=== PATIENT | male | born 1955 | race Caucasian/White ===

== ENCOUNTER 2016-12-15 14:18 | Emergency (ER) | payer MEDICAID, MEDICARE ==
[~2016-12-15] VITALS: Ht 162.6 cm; Wt 111.4 kg
[~2016-12-15 14:18] MED LIST: BUPR150T8 PO; CLON0.1T PO; CYCL10TA9 PO; DIAZ2TAB PO; DIPH50C PO; DOXE100C4 PO; EPIN0.3P2 IJ; FINA5TAB9 PO; FLUT16SP NS; GABA-500 PO; INSU100I13 SUBQ; KETO120S3 TOPICAL; KLO1T PO; LEVO75TA4 PO; MECL-107 PO; OXYC1TAB24 PO; PARO30TA75 PO; PROM25TA14 PO; TEST200V IM; TRAM50TA2 PO; VERA120T5 PO; [UNRECOGNIZED DRUG - CODE] IJ
[2016-12-15 14:28] VITALS: BP 161/96; PULSE 103; RESP 18; O2SAT 95
--- NOTE | 2016-12-15 15:50 | ED.REPORT ---
HPI-Chest Pain 40 and Over Date of Service Dec 15, 2016 ED Provider: Josiah Kennedy MD A 61 year old transgender male with a medical history including hypertension, diabetes, and hormone therapy s/p lab band surgery, cholecystectomy, bilateral mastectomy, and total hysterectomy presents to the ED via EMS with epigastric abdominal pain onset 13:50 today. The pain has improved since onset and is described as "pressure," with radiation to his sides and back. The patient also reports nausea. He denies vomiting, constipation, or diarrhea. Just before onset the patient took Benadryl x2, Tessalon pearls, gabapentin x2, and Verapamil (160mg), as is usual in the afternoon. Per EMS the patient had a BP of 166/106 and a blood sugar of 309 with otherwise normal vital signs. He has had similar pain in the past, in response to morphine. Nursing Notes Stated Complaint: ABDOMINAL PAIN Chief Complaint: Chest Pain Nursing Notes Reviewed: Yes Allergies: Coded Allergies: Contrast Media (Verified Allergy, Unknown, 04/28/16) NSAIDS (Non-Steroidal Anti-Inflamma (Verified Allergy, Unknown, 04/28/16) Penicillins (Verified Allergy, Unknown, 04/28/16) Shellfish (Verified Allergy, Unknown, 04/28/16) Wubqcjy-Kzk-Msr Reductase Inhibitor (Verified Allergy, Unknown, 04/28/16) aspirin (Verified Allergy, Unknown, 04/28/16) clindamycin (Verified Allergy, Unknown, 04/28/16) ergotamine (Verified Allergy, Unknown, 04/28/16) latex (Verified Allergy, Unknown, 04/28/16) sumatriptan (Verified Allergy, Unknown, 04/28/16) tomato (Verified Adverse Reaction, Severe, Anaphylaxis, 04/28/16) Raw tomoto and sun dried tomato. Cooked tomao is fine. Uncoded Allergies: AVOCADOS (Allergy, Unknown, 07/02/15) BEES (Allergy, Unknown, 07/16/14) IV CONTRAST (Allergy, Unknown, 07/16/14) SWEETENERS (Allergy, Unknown, 07/16/14) Includinc low cals, stevia, truvia Eggplant (Adverse Reaction, Severe, Anaphylaxis, 05/28/14) Scheduled Bupropion ER (Wellbutrin SR) 150 Mg Tablet.er 150 MG PO BID Clonazepam (Clonazepam) 1 Mg Tablet 1.5 MG PO HS Clonidine (Clonidine) 0.1 Mg Tablet 0.1 MG PO BIDAC Diphenhydramine Hcl (Benadryl) 50 Mg Capsule 25 MG PO HS Doxepin (Doxepin) 100 Mg Capsule 100-200 MG PO HS Finasteride (Finasteride) 5 Mg Tablet 5 MG PO AM Fluticasone Propionate (Fluticasone Propionate Nasal) 16 Gm [place].susp 2 SPRAY NS DAILY Gabapentin (Gabapentin) 100 Mg Capsule 100 MG PO TID Insulin Glargine (Lantus U100 Solostar Insulin Pen) 100 Unit/1 Ml Insuln.pen 8 UNIT SUBQ MORNING Ketoconazole (Ketoconazole) 120 Ml Shampoo 1 APPL TOPICAL DAILY lather, leave in place for 5 minutes, then rinse off with water immediately. Levothyroxine (Levothyroxine) 75 Mcg Tablet 75 MCG PO DAILY Paroxetine (Paxil) 30 Mg Tablet 60 MG PO HS Testosterone Cypionate (Depo-Testosterone) 200 Mg/1 Ml Depoinj 0.625 ML IM [id number] last dose per pt was Tuesday12/19/2015 Verapamil (Verapamil) 120 Mg Tablet 120 MG PO TID Scheduled PRN Cyclobenzaprine (Cyclobenzaprine) 10 Mg Tablet 10 MG PO BIDAC PRN PRN Spasm Diazepam (Valium) 2 Mg Tablet 2 MG PO TID PRN PRN vertigo Epinephrine (Epipen 2-Jacob) 0.3 Mg/0.3 Ml Auto.injct 0.3 MG IJ PRN PRN PRN For Anaphyllaxis Meclizine HCl (Meclizine HCl) 25 Mg Tablet 25 MG PO TID PRN PRN . Naloxone HCl (Evzio) 0.4 Mg/0.4 Ml Auto.injct 0.4 MG IJ PRN PRN PRN SOMULANT Promethazine (Promethazine) 25 Mg Tablet 25 MG PO Q4-6H PRN PRN For Nausea Tramadol (Tramadol) 50 Mg Tablet 100 MG PO Q6H PRN PRN For Pain oxyCODONE-Acetaminophen 5-325 mg (oxyCODONE-Acetaminophen 5-325 mg) 1 Each Tablet 1-2 TAB PO Q6H PRN PRN For Pain General Time Seen by MD: 15:39 Chief Complaint Other (Epigastric Abdominal Pain) Hx Obtained From: Patient Arrived By: Walk-in Sudden in Onset?: Yes Onset Occurred: 1 - 4 hours ago Symptom Duration: Since onset Location: : Epigastric Quality: Painful Radiation: : Back (And bilateral sides) Severity: Current: Mild Severity: Maximum: Moderate Associated with: Reports: Nausea, Denies: Fever, Vomiting Pertinent Negative: Relieved by nothing Context Related History: Reports: Diabetes mellitus, Hypertension Recent Healthcare: No recent doctor visit Similar Sx Previous: Yes Past Medical History Past Medical History Notes: PCP: Dr. Peoples Neurologist: Dr. 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 Reports: Diabetes mellitus, Hyperlipidemia, Hypertension Reports: Depression Past Surgical History Bilateral breast reduction Lap band surgery 3 debridements Total knee replacement. Distal end of femur Distal end of left clavical surgically removed Hysterectomy Reports: Cholecystectomy Family History Noncontributory Smoking History Never Smoker Social History Alcohol Use: "Social" Drug Use: Denies drug use Other Social History: Local resident Ambulatory Status Walker Review of Systems Constitutional: Denies: Fever GI: Reports: Abdominal pain (Epigastric, with radiation to sides), Nausea, Denies: Constipation, Diarrhea, Vomiting Musculoskeletal: Reports: Back pain Complete sys rev & neg: except as marked. Physical Exam Initial Vital Signs Vital Signs (First) Date Time Temp Pulse Resp B/P Pulse Ox O2 Delivery O2 Flow Rate FiO2 12/15/16 14:28 36.7 103 18 161/96 95 12/15/16 18:37 Room Air Initial VS: Reviewed Head / Eyes: Atraumatic, Normocephalic ENT: Conjunctiva normal, No scleral icterus Skin: Warm, Dry Neurologic: Alert, Oriented, Nonfocal Psychiatric: Mood/affect normal, Behavior normal, Normal thought content General/Constitutional: Awake, Alert Respiratory / Chest: Breath sounds NL, Breath sounds = bilat, No respiratory distress Cardiovascular: Heart rate NL, Regular rhythm, Heart sounds NL, No gallop, No murmurs, No rubs Abdomen: Soft, BS normoactive Tenderness/Guarding/Rebound: Positive: Tender epigastric (Mild) Port for lap band palpable at left of midline Interpretation & Diagnostics Lab Results Interpretation Result Diagram: 12/15/16 1658 12/15/16 1658 Test 12/15/16 16:45 12/15/16 16:58 Hold [place] Top Tube Received (Received) Hold Glass Top Tube Received (Received) White Blood Count 12.1th/mm3 (3.8-10.1) Red Blood Count 6.09mil/mm3 (4.40-5.80) Hemoglobin 17.4g/dL (13.8-17.2) Hematocrit 49.7% (41.0-50.0) Mean Corpuscular Volume 81.6fL (81-100) Mean Corpuscular Hemoglobin 28.6pg (27.0-35.0) Mean Corpuscular Hemoglobin Concent 35.0% (32.0-37.0) Red Cell Distribution Width 13.7% (12.3-15.4) Platelet Count 205bil/L (150-400) Neutrophils (%) (Auto) 77.3% (40-74) Lymphocytes (%) (Auto) 11.0% (14-46) Monocytes (%) (Auto) 6.8% (4-12) Eosinophils (%) (Auto) 3.9% (0-5) Basophils (%) (Auto) 0.3% (0-3) Sodium Level 140mEq/L (134-144) Potassium Level 4.7mEq/L (3.5-5.2) Chloride Level 99mEq/L (97-108) Carbon Dioxide Level 24mmol/L (18-29) Blood Urea Nitrogen 15mg/dL (8-27) Creatinine 0.92mg/dL (0.76-1.27) Estimat Glomerular Filtration Rate 89mL/min (>59) Glucose Level 324mg/dL (60-99) Calcium Level 9.6mg/dL (8.5-10.1) Total Bilirubin 0.6mg/dL (0.0-1.2) Aspartate Amino Transf (AST/SGOT) 36U/L (0-50) Alanine Aminotransferase (ALT/SGPT) 51U/L (0-44) Alkaline Phosphatase 86U/L (25-160) Troponin T < 0.010ug/L (0.0-0.011) Total Protein 7.4g/dL (6.4-8.4) Albumin 4.4g/dL (3.4-5.0) Lipase 341U/L (13-60) ECG Interpretation ECG Interpretation: Sinus rhythm rate 96 Inferior Q waves and poor R wave progression No change from 04/23/16 Time: 15:54 Interpreted by: ED physician X-Ray Chest Interpretation Chest Xray Interpretation: IMPRESSION: No acute process. Dictated by: Ruby Gregory M.D. on 12/15/2016 at 16:40 View: Portable, 1 view Interpretation / Wet Read by: Interpret - Radiologist CT Abd / Pelvis Interpretation IMPRESSION: 1. Normal CT appearance of pancreas. This finding does not rule out early pancreatitis. 2. Colonic diverticulosis. No active diverticulitis. 3. Normal appendix. 4. Hepatic steatosis. Dictated by: Mario Raymundo M.D. on 12/15/2016 at 19:27 Study type: Abdominal CT no contrast Interpretation / Wet Read by: Interpret - Radiologist Re-Eval/Medical Decision Source of Hx: Old records Time of Eval: 18:35 Patient Status: Condition improved, Pain improved Re-Evaluation/Progress Note: Patient's pain has improved. Discussed with patient lab results and plan for abdominal CT. Time of Eval: 23:30 Patient Status: Condition improved Re-Evaluation/Progress Note: Patient's pain continues to improve. Discussed with patient CT, x-ray, and lab results, diagnosis, and plan for discharge. Follow-up and return to the ER instructions given. Patient agrees with plan for care and all questions were addressed. Counseled Regarding: Diagnosis, Lab results, Need for follow-up, When/why to return to ED Discharge & Departure Primary Impression: Epigastric abdominal pain Disposition: Home Discharge Condition All VS Reviewed: Yes Condition: Stable Additional Instructions: ED evaluation included interview, exam, labs, review of past records and CT abdomen. Labs raised concern for pancreatitis, imaging does not support this and you have improved. Start with a clear liquid diet tomorrow and advance as tolerated. continue prior home medications. follow up with primary care in 3- 5 days. Referrals: Terrance Peoples DO (PCP) Gianni Chew Attestation Portions of this note were transcribed by Mónica Amaro. I, Dr. Kennedy, personally performed the history, physical exam, and medical decision-making; I reviewed and confirmed the accuracy of the information in the transcribed note. Signed by: Kendall Caruso, 12/15/2016, 23:50 copies to: Terrance Peoples DO; Gianni Chew Donald L MD Dec 15, 2016 15:50 MÓNICA AMARO Dec 15, 2016 16:29
[2016-12-15] MEDS ORDERED: 0.9% Sodium Chloride 1,000 ML IV ONE ×2 (16:19→18:40)
[2016-12-15] MEDS ORDERED: Ondansetron 2 mg/mL 2 mL Inj IVPUSH ONE (16:20)
--- NOTE | 2016-12-15 16:43 | DRSVH ---
PROCEDURE: X-RAY CHEST ONE VIEW, PORTABLE ([id number]) INDICATIONS: chest/epigastric pain TECHNIQUE: One view of the chest was acquired. COMPARISON: [facility], CR, XR CHEST 1VW, 01/22/2016, 19:47. [facility], CR, XR CHEST 1VW (PORTABLE), 01/22/2016, 17:23. [facility], CR, XR CHEST 1VW (PORTABLE), 12/30, 15:26. [facility], CR, XR CHEST 1VW (PORTABLE), 01/06/2016, 9:29. FINDINGS: Surgical changes and devices: None. Lungs and pleura: No pleural effusions or pneumothorax. Lungs are clear. Mediastinum: Mediastinal contours appear normal. Heart size is normal. Bones and chest wall: No suspicious bony lesions. Overlying soft tissues appear unremarkable. IMPRESSION: No acute process. Dictated by: Ruby Gregory M.D. on 12/15/2016 at 16:40 Approved by: Ruby Gregory M.D. on 12/15/2016 at 16:41
[2016-12-15 17:12] LABS: BASOPHILS % (AUTO) 0.3 % (0-3); EOSINOPHILS % (AUTO) 3.9 % (0-5); MONOCYTES % (AUTO) 6.8 % (4-12); Mean Corpuscular Hemoglobin 28.6 pg (27.0-35.0); Mean Corpuscular Volume 81.6 fL (81-100); NEUTROPHILS % (AUTO) 77.3 % (40-74); Platelet Count 205 bil/L (150-400)
[2016-12-15 17:41] LABS: TROPONIN T < 0.010 ug/L (0.0-0.011)
[2016-12-15 17:43] LABS: Lipase 341 U/L (13-60)
[2016-12-15 18:37] VITALS: BP 170/105; PULSE 96; RESP 12; O2SAT 98
[2016-12-15] MEDS ORDERED: HYDROmorphone 1 mg/mL Inj IVPUSH PRN (18:40)
--- NOTE | 2016-12-15 19:34 | DRSVH ---
PROCEDURE: CT ABDOMEN AND PELVIS WITHOUT CONTRAST ([id number]) INDICATIONS: Abdominal pain and elevated lipase. TECHNIQUE: After the administration of oral contrast, 5 mm thick sections acquired from the diaphragms to the sy mphysis. 5 mm coronal and sagittal reformats were performed. For radiation dose reduction, the foll owing was used: automated exposure control, adjustment of mA and/or kV according to patient size. COMPARISON: [facility], CT, KUB - CT (PNL), 01/21/2015, 16:06. [facility], C T, CHEST W/O CONTRAST, 02/17/2015, 14:50. FINDINGS: Image quality: Excellent. ABDOMEN: Lung bases: Lung bases are clear. Heart size is normal. Solid organs: There is diffuse hepatic fatty infiltration. Liver and spleen are normal in size. Gal lbladder is surgically absent. Pancreas is normal in size. No adrenal nodules. Both kidneys are no rmal in size, without hydronephrosis or nephrolithiasis. Peritoneum and bowel: There is gastric banding. Bowel loops demonstrate normal wall thickness and ca liber. The appendix is normal. No free fluid or air. Nodes and vessels: No retroperitoneal or mesenteric adenopathy by size criteria. Aorta and inferior vena cava are normal in size. Miscellaneous: No ventral hernias. PELVIS: Genitourinary: Bladder wall thickness is normal. Miscellaneous: No inguinal hernias or adenopathy. Bones: No suspicious bony lesions. No vertebral body compression fractures. There are degenerative changes in lumbar spine. IMPRESSION: 1. Normal CT appearance of pancreas. This finding does not rule out early pancreatitis. 2. Colonic diverticulosis. No active diverticulitis. 3. Normal appendix. 4. Hepatic steatosis. Dictated by: Mario Raymundo M.D. on 12/15/2016 at 19:27 Approved by: Mario Raymundo M.D. on 12/15/2016 at 19:32
[2016-12-15 19:57] VITALS: BP 157/97; PULSE 101; O2SAT 95
[2016-12-15 22:03] VITALS: BP 159/98; PULSE 103; O2SAT 96
[2016-12-16 00:04] VITALS: BP 155/92; PULSE 102; O2SAT 92
[2016-12-16 00:09] VITALS: BP_SYST 155; PULSE 103; O2SAT 93
== END 2016-12-16 00:10 | disposition home or self-care (01) ==
LOC: SED 14:18 → EDBD 14:18 → EDUNIT# 14:18 → SED 12-16 00:10
DX: R10.13 Epigastric pain (principal); I10 Essential (primary) hypertension; Z98.84 Bariatric surgery status; Z87.890 Personal history of sex reassignment; Z86.73 Personal history of transient ischemic attack (TIA), and cerebral infarction without residual deficits; Z86.39 Personal history of other endocrine, nutritional and metabolic disease; Z79.4 Long term (current) use of insulin; Z88.0 Allergy status to penicillin; Z88.1 Allergy status to other antibiotic agents; Z88.6 Allergy status to analgesic agent
CPT/HCPCS: 36415; 71010; 74176; 80053; 83690; 84484; 85025; 93005; 96361; 96374; 96375; 99285; J1170; J2405; J7030

== ENCOUNTER 2017-01-31 14:01 | Emergency (ER) | payer MEDICAID, MEDICARE ==
[~2017-01-31] VITALS: Ht 162.6 cm; Wt 106.8 kg
[2017-01-31 14:05] VITALS: BP 97/41; PULSE 68; RESP 17; O2SAT 95
--- NOTE | 2017-01-31 14:06 | ED.REPORT ---
HPI-Trauma Minor / Fall Date of Service Jan 31, 2017 ED Provider: Blair Alvarez DO 61 year old morbidly obese male with a history of CVA, diabetes, chronic pain with narcotic habituation, and HTN presents to the ER via EMS due to a mechanical ground level fall while getting off of a bus wheelchair lift just prior to arrival. He states that his legs suddenly became weak and collapsed out from under him. Associated minor head trauma during the fall. Patient denies any LOC, neck trauma, or any other injuries secondary to the fall. He reports feeling generally weak for the past 10 days. Nursing Notes Stated Complaint: GROUND LEVEL FALL Chief Complaint: Multiple Trauma/Fall Nursing Notes Reviewed: Yes Allergies: Coded Allergies: Contrast Media (Verified Allergy, Unknown, 04/28/16) NSAIDS (Non-Steroidal Anti-Inflamma (Verified Allergy, Unknown, 04/28/16) Penicillins (Verified Allergy, Unknown, 04/28/16) Shellfish (Verified Allergy, Unknown, 04/28/16) Uqevqtn-Lel-Tjc Reductase Inhibitor (Verified Allergy, Unknown, 04/28/16) aspirin (Verified Allergy, Unknown, 04/28/16) clindamycin (Verified Allergy, Unknown, 04/28/16) ergotamine (Verified Allergy, Unknown, 04/28/16) latex (Verified Allergy, Unknown, 04/28/16) sumatriptan (Verified Allergy, Unknown, 04/28/16) tomato (Verified Adverse Reaction, Severe, Anaphylaxis, 04/28/16) Raw tomoto and sun dried tomato. Cooked tomao is fine. Uncoded Allergies: AVOCADOS (Allergy, Unknown, 07/02/15) BEES (Allergy, Unknown, 07/16/14) IV CONTRAST (Allergy, Unknown, 07/16/14) SWEETENERS (Allergy, Unknown, 07/16/14) Includinc low cals, stevia, truvia Eggplant (Adverse Reaction, Severe, Anaphylaxis, 05/28/14) Scheduled Bupropion ER (Wellbutrin SR) 150 Mg Tablet.er 150 MG PO BID Clonazepam (Clonazepam) 1 Mg Tablet 1.5 MG PO HS Clonidine (Clonidine) 0.1 Mg Tablet 0.1 MG PO BIDAC Diphenhydramine Hcl (Benadryl) 50 Mg Capsule 25 MG PO HS Doxepin (Doxepin) 100 Mg Capsule 100-200 MG PO HS Finasteride (Finasteride) 5 Mg Tablet 5 MG PO AM Fluticasone Propionate (Fluticasone Propionate Nasal) 16 Gm [place].susp 2 SPRAY NS DAILY Gabapentin (Gabapentin) 100 Mg Capsule 100 MG PO TID Insulin Glargine (Lantus U100 Solostar Insulin Pen) 100 Unit/1 Ml Insuln.pen 8 UNIT SUBQ MORNING Ketoconazole (Ketoconazole) 120 Ml Shampoo 1 APPL TOPICAL DAILY lather, leave in place for 5 minutes, then rinse off with water immediately. Levothyroxine (Levothyroxine) 75 Mcg Tablet 75 MCG PO DAILY Paroxetine (Paxil) 30 Mg Tablet 60 MG PO HS Testosterone Cypionate (Depo-Testosterone) 200 Mg/1 Ml Depoinj 0.625 ML IM [id number] last dose per pt was Tuesday12/19/2015 Verapamil (Verapamil) 120 Mg Tablet 120 MG PO TID Scheduled PRN Cyclobenzaprine (Cyclobenzaprine) 10 Mg Tablet 10 MG PO BIDAC PRN PRN Spasm Diazepam (Valium) 2 Mg Tablet 2 MG PO TID PRN PRN vertigo Epinephrine (Epipen 2-Jacob) 0.3 Mg/0.3 Ml Auto.injct 0.3 MG IJ PRN PRN PRN For Anaphyllaxis Meclizine HCl (Meclizine HCl) 25 Mg Tablet 25 MG PO TID PRN PRN . Naloxone HCl (Evzio) 0.4 Mg/0.4 Ml Auto.injct 0.4 MG IJ PRN PRN PRN SOMULANT Promethazine (Promethazine) 25 Mg Tablet 25 MG PO Q4-6H PRN PRN For Nausea Tramadol (Tramadol) 50 Mg Tablet 100 MG PO Q6H PRN PRN For Pain oxyCODONE-Acetaminophen 5-325 mg (oxyCODONE-Acetaminophen 5-325 mg) 1 Each Tablet 1-2 TAB PO Q6H PRN PRN For Pain General Time Seen by MD: 14:05 Chief Complaint Fall Hx Obtained From: Patient Arrived By: Ambulance Onset Occurred: Just prior to arrival Caused by: Accidental, Fall on ground Context: Occurred at: Home injury Associated with: Reports: Headache, Denies: Loss of consciousness, Neck pain Pertinent Negative: Pt denies other symptoms Similar Sx Previous: Yes Past Medical History Past Medical History Notes: PCP: Dr. Peoples Neurologist: Dr. 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 Reports: Diabetes mellitus, Hyperlipidemia, Hypertension Reports: Depression Past Surgical History Bilateral breast reduction Lap band surgery 3 debridements Total knee replacement. Distal end of femur Distal end of left clavical surgically removed Hysterectomy Reports: Cholecystectomy Family History Noncontributory Smoking History Never Smoker Social History Alcohol Use: "Social" Drug Use: Denies drug use Other Social History: Local resident Ambulatory Status Walker Review of Systems Constitutional: Reports: Weakness - generalized Respiratory: Denies: Shortness of breath Musculoskeletal: Denies: Back pain, Extremity pain, Joint pain, Lumbar pain, Neck pain, Thoracic pain Neurologic: Reports: Focal weakness (Lower Extremities), Headache, Denies: Syncope Complete sys rev & neg: except as marked. Physical Exam Initial Vital Signs Vital Signs (First) Date Time Temp Pulse Resp B/P Pulse Ox O2 Delivery O2 Flow Rate FiO2 01/31/17 14:05 36.6 68 17 97/41 95 Room Air Initial VS: Reviewed Abdomen / GI: Soft, Non-tender, No guarding, No rebound, No distention Extremities: Vascular intact, Neuro intact, No swelling, No tenderness Skin: Warm, Dry, No cyanosis General/Constitutional: Well developed Alertness: Positive: Somnolent (Arousable to verbal stimulation) Appearance / Presentation: Positive: Obese, morbidly Neck: Atraumatic, Supple, Full range of motion, No swelling, Non-tender, No midline vertebral tend Head / Eyes: Normocephalic, PERRL Tenderness along right parietal area, no signs of trauma. Respiratory / Chest: Breath sounds NL, Breath sounds = bilat, No respiratory distress, No rales, No rhonchi, No wheezing, No chest tenderness, No chest wall deformity, No crepitus Cardiovascular: Heart rate NL, Regular rhythm, Heart sounds NL, Cap refill not delayed, Peripheral circulation NL Back: Atraumatic, Inspection NL, Full range of motion, Non-tender, No midline vertebral tend, No CVA tenderness Upper Extremity / MS: Atraumatic, Inspection NL, Full range of motion, No swelling, Non-tender, No erythema, No deformity, Neurologic intact, Vascular intact Lower Extremity / Pelvis / MS: Inspection NL, No swelling, Non-tender, No erythema, No deformity, Neurologic intact, Vascular intact, No edema Interpretation & Diagnostics Lab Results Interpretation Result Diagram: 01/31/17 1530 01/31/17 1530 Test 01/31/17 15:30 White Blood Count 9.2th/mm3 (3.8-10.1) Red Blood Count 5.22mil/mm3 (4.40-5.80) Hemoglobin 14.7g/dL (13.8-17.2) Hematocrit 44.5% (41.0-50.0) Mean Corpuscular Volume 85.2fL (81-100) Mean Corpuscular Hemoglobin 28.2pg (27.0-35.0) Mean Corpuscular Hemoglobin Concent 33.0% (32.0-37.0) Red Cell Distribution Width 14.1% (12.3-15.4) Platelet Count 192bil/L (150-400) Neutrophils (%) (Auto) 76.6% (40-74) Lymphocytes (%) (Auto) 12.7% (14-46) Monocytes (%) (Auto) 6.8% (4-12) Eosinophils (%) (Auto) 3.5% (0-5) Basophils (%) (Auto) 0.2% (0-3) Sodium Level 136mEq/L (134-144) Potassium Level 4.3mEq/L (3.5-5.2) Chloride Level 97mEq/L (97-108) Carbon Dioxide Level 23mmol/L (18-29) Blood Urea Nitrogen 23mg/dL (8-27) Creatinine 1.89mg/dL (0.76-1.27) Estimat Glomerular Filtration Rate 39mL/min (>59) Glucose Level 217mg/dL (60-99) Calcium Level 9.2mg/dL (8.5-10.1) Magnesium Level 1.5mg/dL (1.6-2.6) Total Bilirubin 0.4mg/dL (0.0-1.2) Aspartate Amino Transf (AST/SGOT) 19U/L (0-50) Alanine Aminotransferase (ALT/SGPT) 41U/L (0-44) Alkaline Phosphatase 64U/L (25-160) Troponin T < 0.010ug/L (0.0-0.011) Total Protein 7.0g/dL (6.4-8.4) Albumin 3.9g/dL (3.4-5.0) ECG Interpretation ECG Interpretation: Sinus rhythm, rate 61 LVH Old inferior infarct Anterior Q waves, possibly due to LVH Time: 15:36 Interpreted by: ED physician X-Ray Chest Interpretation Chest Xray Interpretation: IMPRESSION: Stable chest. No acute cardiopulmonary process is evident. Dictated by: Pedro Thurston M.D. on 01/31/2017 at 14:38 Approved by: Pedro Thurston M.D. on 01/31/2017 at 14:38 View: AP & lat Interpretation / Wet Read by: Interpret - Radiologist CT Head Interpretation IMPRESSION: 1. No acute intracranial abnormality. 2. Age-related atrophy and chronic deep white matter ischemic changes. 3. Focal areas of hypodensity likely represent areas of previous ischemic insult and chronic small vessel ischemic change. Dictated by: Brad Sanchez M.D. on 01/31/2017 at 16:03 Approved by: Brad Sanchez M.D. on 01/31/2017 at 16:08 Study: Head CT no contrast Interpretation / Wet Read by: Interpret - Radiologist Re-Eval/Medical Decision Med Decision/Clinical Course Patient reports generalized weakness and fall while getting off the bus, I suspect possible oversedation due to medication. Patient was initially somnolent when he arrived. He is now back to a functional normal baseline and will be discharged. Creatinine is mildly elevated above baseline but in looking at the trend over the last year seems to be well within the middle of this range. 1.5 L of normal saline were given on the chance this is dehydration and close follow-up with PCP as recommended for repeat lab evaluation. Source of Hx: Old records Re-Evaluation/Progress #1: Time of Eval: 14:33 Re-Evaluation/Progress Note: Completed physical examination. Re-Evaluation/Progress #2: Time of Eval: 17:37 Re-Evaluation/Progress Note: Patient is awake and playing with his phone. Discussed lab and radiology results and plan to discharge. Patient is amenable to the plan. Return precautions given. All other questions addressed. Counseled Regarding: Diagnosis, Lab results, Need for follow-up, When/why to return to ED Discharge & Departure Impression: Primary Impression: Generalized weakness Additional Impression: Dehydration Disposition: Home Discharge Condition All VS Reviewed: Yes Condition: Stable Additional Instructions: Be sure to drink fluids regularly. Call your primary care doctor in the morning for close follow-up. Your labs show that you are mildly dehydrated today. You should have repeat lab testing in about 1 week. Return to the ER as needed if worse. Referrals: Terrance Peoples DO (PCP) Abdulkadiribfelisha Attestation Portions of this note were transcribed by Celso Yuan. I, Dr. Alvarez, personally performed the history, physical exam and medical decision-making; I reviewed and confirmed the accuracy of the information in the transcribed note. Signed by: Kendall Daniels, 01/31/2017 and 17:56 copies to: Terrance Peoples Timothy S DO Jan 31, 2017 14:06 CELSO YUAN Jan 31, 2017 14:13
[2017-01-31] MEDS ORDERED: 0.9% Sodium Chloride 1,000 ML IV ONE (14:31)
[2017-01-31] MEDS ORDERED: Ondansetron 2 mg/mL 2 mL Inj IVPUSH ONE (14:35)
--- NOTE | 2017-01-31 15:40 | DRSVH ---
PROCEDURE: X-RAY CHEST, TWO VIEWS ([id number]) INDICATIONS: generalized weakness TECHNIQUE: 2 views of the chest were acquired. COMPARISON: [facility], CR, XR CHEST 1VW (PORTABLE), 12/15/2016, 16:19. [facility], CR, XR HIP 2VW LT, 08/21/2016, 22:41. [facility], CR, XR CHEST 1VW, 01/22/2016, 1 9:47. FINDINGS: Surgical changes and devices: None. Lungs and pleura: No pleural effusions or pneumothorax. Lungs are clear. Mediastinum: Mediastinal contours are normal. Heart size is normal. Bones and chest wall: No suspicious bony abnormalities. Soft tissues appear unremarkable. IMPRESSION: Stable chest. No acute cardiopulmonary process is evident. Dictated by: Pedro Thurston M.D. on 01/31/2017 at 14:38 Approved by: Pedro Thurston M.D. on 01/31/2017 at 14:38
[2017-01-31 15:47] LABS: BASOPHILS % (AUTO) 0.2 % (0-3); EOSINOPHILS % (AUTO) 3.5 % (0-5); MONOCYTES % (AUTO) 6.8 % (4-12); Mean Corpuscular Hemoglobin 28.2 pg (27.0-35.0); Mean Corpuscular Volume 85.2 fL (81-100); NEUTROPHILS % (AUTO) 76.6 % (40-74); Platelet Count 192 bil/L (150-400)
--- NOTE | 2017-01-31 16:10 | DRSVH ---
PROCEDURE: CT BRAIN WITHOUT CONTRAST ([id number]) INDICATIONS: fall head injury TECHNIQUE: Noncontrast 4.5 mm thick angled axial sections acquired from the foramen magnum to the vertex, with c oronal reformats. COMPARISON: CT brain 08/21/2016, 05/02/2016, 04/28/2016; MRI brain 04/24/2016 FINDINGS: Image quality: Excellent. CSF spaces: Basal cisterns are patent. No extra-axial fluid collections. The ventricles are symmet roxi in size and shape. Brain: No intracranial bleeds or masses. There is cerebral volume loss for age, with resultant vent ricular and sulcal prominence. There are periventricular and deep white matter chronic small vessel ischemic changes. A triangular-shaped hypodensity in the periphery of the right cerebellum is unchang ed. A chronic lacunar infarct in the left caudate nucleus is unchanged. Focal triangular shaped hypod ensity in the right frontal corticomedullary junction is unchanged. An irregular hypodensity in the c ortical medullary junction of the left mid parietal lobe is unchanged. There is intracranial internal carotid artery atherosclerosis. Skull and face: Calvarium and visualized facial bones appear intact, without suspicious lesions. Sinuses: Visualized sinuses and mastoids are clear. IMPRESSION: 1. No acute intracranial abnormality. 2. Age-related atrophy and chronic deep white matter ischemic changes. 3. Focal areas of hypodensity likely represent areas of previous ischemic insult and chronic small ve ssel ischemic change. Dictated by: Brad Sanchez M.D. on 01/31/2017 at 16:03 Approved by: Brad Sanchez M.D. on 01/31/2017 at 16:08
[2017-01-31 16:23] LABS: Magnesium 1.5 mg/dL (1.6-2.6); TROPONIN T < 0.010 ug/L (0.0-0.011)
[2017-01-31] MEDS ORDERED: 0.9% Sodium Chloride 500 ML IV ONE (16:40)
[2017-01-31 18:43] VITALS: BP 135/67; PULSE 79; RESP 17; O2SAT 98
== END 2017-01-31 19:02 | disposition home or self-care (01) ==
LOC: SED 14:01 → EDBD 14:01 → SED 19:02
DX: R53.1 Weakness (principal); W18.39XA Other fall on same level, initial encounter; Y93.89 Activity, other specified; Y92.811 Bus as the place of occurrence of the external cause; Y99.8 Other external cause status; E86.0 Dehydration; I10 Essential (primary) hypertension; E11.9 Type 2 diabetes mellitus without complications; E78.5 Hyperlipidemia, unspecified; E03.9 Hypothyroidism, unspecified; Z86.73 Personal history of transient ischemic attack (TIA), and cerebral infarction without residual deficits; Z79.4 Long term (current) use of insulin; Z88.0 Allergy status to penicillin; Z88.1 Allergy status to other antibiotic agents; Z88.8 Allergy status to other drugs, medicaments and biological substances; Z91.040 Latex allergy status; Z91.041 Radiographic dye allergy status; Z91.013 Allergy to seafood; Z91.018 Allergy to other foods
CPT/HCPCS: 36415; 70450; 71020; 80053; 83735; 84484; 85025; 93005; 96360; 96361; 99285; J7030; J7040

== ENCOUNTER 2017-04-16 17:23 | Emergency (ER) | payer MEDICARE, OTHER ==
[~2017-04-16] VITALS: Ht 162.6 cm; Wt 113.0 kg
[2017-04-16 17:30] VITALS: BP 130/103; PULSE 118; RESP 16; O2SAT 98
--- NOTE | 2017-04-16 17:52 | DRSVH ---
PROCEDURE: X-RAY CHEST ONE VIEW, PORTABLE ([id number]) INDICATIONS: cough TECHNIQUE: One view of the chest was acquired. COMPARISON: [facility], CR, XR CHEST 2VW, 01/31/2017, 14:54. FINDINGS: Surgical changes and devices: Vascular clips in the right upper quadrant consistent with cholecystect he. Lungs and pleura: No pleural effusions or pneumothorax. Lungs are clear. Mediastinum: Mediastinal contours appear normal. Heart size is normal. Bones and chest wall: No suspicious bony lesions. Overlying soft tissues appear unremarkable. IMPRESSION: No acute disease is seen in the one view chest. Cause of cough is not identified. Dictated by: Ottoniel Canas M.D. on 04/16/2017 at 17:50 Approved by: Ottoniel Canas M.D. on 04/16/2017 at 17:50
--- NOTE | 2017-04-16 18:21 | ED.REPORT ---
HPI-General Illness Date of Service Apr 16, 2017 ED Provider: Bhupendra Marrero MD Pt is a 61 y/o transgender male w/ a hx of HTN, IDDM, hyperlipidemia, presenting to the ED by recommendation of his PCP c/o cough onset 1 week ago. The patient [facility] ago and was told he had sinusitis and was placed on Bactrim. He finished the course yesterday and was also taking Mucinex to help with cough. He was told to use cough syrup but did not get any because they have sugar in them. The cough has persisted and it seems like he is now experiencing chest congestion. He missed his Insulin dose yesterday and did not take any today because he hasn't had anything to eat today and he is instructed to take it when he eats. He admits that he been drinking juice and soda pop throughout the day. Nursing Notes Stated Complaint: INFECTION Chief Complaint: Respiratory Complaints Nursing Notes Reviewed: Yes Allergies: Coded Allergies: Contrast Media (Verified Allergy, Unknown, 04/28/16) NSAIDS (Non-Steroidal Anti-Inflamma (Verified Allergy, Unknown, 04/28/16) Penicillins (Verified Allergy, Unknown, 04/28/16) Shellfish (Verified Allergy, Unknown, 04/28/16) Wkwuvtk-Lzd-Ude Reductase Inhibitor (Verified Allergy, Unknown, 04/28/16) aspirin (Verified Allergy, Unknown, 04/28/16) clindamycin (Verified Allergy, Unknown, 04/28/16) ergotamine (Verified Allergy, Unknown, 04/28/16) latex (Verified Allergy, Unknown, 04/28/16) sumatriptan (Verified Allergy, Unknown, 04/28/16) tomato (Verified Adverse Reaction, Severe, Anaphylaxis, 04/28/16) Raw tomoto and sun dried tomato. Cooked tomao is fine. Uncoded Allergies: AVOCADOS (Allergy, Unknown, 07/02/15) BEES (Allergy, Unknown, 07/16/14) IV CONTRAST (Allergy, Unknown, 07/16/14) SWEETENERS (Allergy, Unknown, 07/16/14) Includinc low cals, stevia, truvia Eggplant (Adverse Reaction, Severe, Anaphylaxis, 05/28/14) Scheduled Bupropion ER (Wellbutrin SR) 150 Mg Tablet.er 150 MG PO BID Clonazepam (Clonazepam) 1 Mg Tablet 1.5 MG PO HS Clonidine (Clonidine) 0.1 Mg Tablet 0.1 MG PO BIDAC Diphenhydramine Hcl (Benadryl) 50 Mg Capsule 25 MG PO HS Doxepin (Doxepin) 100 Mg Capsule 100-200 MG PO HS Finasteride (Finasteride) 5 Mg Tablet 5 MG PO AM Fluticasone Propionate (Fluticasone Propionate Nasal) 16 Gm [place].susp 2 SPRAY NS DAILY Gabapentin (Gabapentin) 100 Mg Capsule 100 MG PO TID Insulin Glargine (Lantus U100 Solostar Insulin Pen) 100 Unit/1 Ml Insuln.pen 8 UNIT SUBQ MORNING Ketoconazole (Ketoconazole) 120 Ml Shampoo 1 APPL TOPICAL DAILY lather, leave in place for 5 minutes, then rinse off with water immediately. Levothyroxine (Levothyroxine) 75 Mcg Tablet 75 MCG PO DAILY Paroxetine (Paxil) 30 Mg Tablet 60 MG PO HS Testosterone Cypionate (Depo-Testosterone) 200 Mg/1 Ml Depoinj 0.625 ML IM [id number] last dose per pt was Tuesday12/19/2015 Verapamil (Verapamil) 120 Mg Tablet 120 MG PO TID Scheduled PRN Cyclobenzaprine (Cyclobenzaprine) 10 Mg Tablet 10 MG PO BIDAC PRN PRN Spasm Diazepam (Valium) 2 Mg Tablet 2 MG PO TID PRN PRN vertigo Epinephrine (Epipen 2-Jacob) 0.3 Mg/0.3 Ml Auto.injct 0.3 MG IJ PRN PRN PRN For Anaphyllaxis Guaifenesin/Codeine Phosphate (Cheratussin AC Syrup) 118 Ml Liquid 5 ML PO TID PRN PRN For Cough Meclizine HCl (Meclizine HCl) 25 Mg Tablet 25 MG PO TID PRN PRN . Naloxone HCl (Evzio) 0.4 Mg/0.4 Ml Auto.injct 0.4 MG IJ PRN PRN PRN SOMULANT Promethazine (Promethazine) 25 Mg Tablet 25 MG PO Q4-6H PRN PRN For Nausea Tramadol (Tramadol) 50 Mg Tablet 100 MG PO Q6H PRN PRN For Pain oxyCODONE-Acetaminophen 5-325 mg (oxyCODONE-Acetaminophen 5-325 mg) 1 Each Tablet 1-2 TAB PO Q6H PRN PRN For Pain General Time Seen by MD: 18:15 Chief Complaint Cough Hx Obtained From: Patient Arrived By: Walk-in Sudden in Onset?: No Onset Occurred: 1 week ago Symptom Duration: Since onset Severity: Current: No pain currently Severity: Maximum: No pain Past Medical History Past Medical History Notes: PCP: Dr. Peoples Neurologist: Dr. 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 Reports: Diabetes mellitus, Hyperlipidemia, Hypertension Reports: Depression Past Surgical History Bilateral breast reduction Lap band surgery 3 debridements Total knee replacement. Distal end of femur Distal end of left clavical surgically removed Hysterectomy Reports: Cholecystectomy Family History Noncontributory Smoking History Never Smoker Social History Alcohol Use: "Social" Drug Use: Denies drug use Other Social History: Local resident Ambulatory Status Walker Review of Systems Full Review of Systems Constitutional: Denies: Chills, Fever Respiratory: Reports: Non-productive cough, Denies: Shortness of breath Cardiovascular: Denies: Chest pain, Dyspnea on exertion GI: Denies: Abdominal pain, Nausea, Vomiting Complete sys rev & neg: except as marked. Physical Exam Vital Signs Vital Signs Date Time Temp Pulse Resp B/P Pulse Ox O2 Delivery O2 Flow Rate FiO2 04/16/17 20:31 37.1 100 19 134/81 97 Room Air 04/16/17 17:30 37.4 118 16 130/103 98 Room Air Initial VS: Reviewed, Vital signs abnormal Head / Eyes: Atraumatic, Normocephalic, PERRL ENT: Mucous membranes moist, Conjunctiva normal, No scleral icterus Neck: Supple, Full range of motion Cardiovascular: Regular rate & rhythm, Heart sounds normal, Intact distal pulses Abdomen / GI: Soft, Non-tender, No distention Extremities: Vascular intact, Neuro intact, No swelling Skin: Warm, Dry, No cyanosis Neurologic: Alert, Oriented, Nonfocal Psychiatric: Mood/affect normal, Behavior normal, Normal thought content General/Constitutional: Awake, Alert, No acute distress, Cooperative, Not toxic appearing Appearance / Presentation: Positive: Obese Respiratory / Chest: Atraumatic, Breath sounds NL, Breath sounds = bilat, No respiratory distress, No rales, No rhonchi, No wheezing, No retractions, No stridor Intermittent dry non-productive cough Interpretation & Diagnostics Lab Results Interpretation Result Diagram: 04/16/17184904/16/17 185 Test 04/16/17 18:50 White Blood Count 11.7th/mm3 (3.8-10.1) Red Blood Count 5.80mil/mm3 (4.40-5.80) Hemoglobin 17.0g/dL (13.8-17.2) Hematocrit 47.3% (41.0-50.0) Mean Corpuscular Volume 81.6fL (81-100) Mean Corpuscular Hemoglobin 29.3pg (27.0-35.0) Mean Corpuscular Hemoglobin Concent 35.9% (32.0-37.0) Red Cell Distribution Width 13.9% (12.3-15.4) Platelet Count 269bil/L (150-400) Neutrophils (%) (Auto) 75.1% (40-74) Lymphocytes (%) (Auto) 14.2% (14-46) Monocytes (%) (Auto) 7.3% (4-12) Eosinophils (%) (Auto) 2.7% (0-5) Basophils (%) (Auto) 0.4% (0-3) Sodium Level 130mEq/L (134-144) Potassium Level 4.6mEq/L (3.5-5.2) Chloride Level 94mEq/L (97-108) Carbon Dioxide Level 19mmol/L (18-29) Blood Urea Nitrogen 34mg/dL (8-27) Creatinine 1.75mg/dL (0.76-1.27) Estimat Glomerular Filtration Rate 42mL/min (>59) Glucose Level 466mg/dL (60-99) Calcium Level 10.1mg/dL (8.5-10.1) Magnesium Level 2.0mg/dL (1.6-2.6) Total Bilirubin 0.7mg/dL (0.0-1.2) Aspartate Amino Transf (AST/SGOT) 15U/L (0-50) Alanine Aminotransferase (ALT/SGPT) 37U/L (0-44) Alkaline Phosphatase 103U/L (25-160) Troponin T < 0.010ug/L (0.0-0.011) Total Protein 7.7g/dL (6.4-8.4) Albumin 4.2g/dL (3.4-5.0) Hold Glass Top Tube Received (Received) ECG Interpretation ECG Interpretation: Sinus tachycardia rate [address] or T wave changes Anterior Q waves present Compared to prior EKG of 01/31/17 patient is now tachycardic however there are no other acute changes present Time: 19:52 Interpreted by: ED physician X-Ray Chest Interpretation Chest Xray Interpretation: IMPRESSION: No acute disease is seen in the one view chest. Cause of cough is not identified. Dictated by: Ottoniel Canas M.D. on 04/16/2017 at 17:50 Approved by: Ottoneil Canas M.D. on 04/16/2017 at 17:50 View: Portable, 1 view Interpretation / Wet Read by: Interpret - Radiologist Re-Eval/Medical Decision Med Decision/Clinical Course Pt is a 61 y/o transgender male w/ a hx of HTN, IDDM, hyperlipidemia, presenting to the ED by recommendation of his PCP c/o cough onset 1 week ago. The [facility] ago and was told he had sinusitis and was placed on Bactrim. He finished the course yesterday and was also taking Mucinex to help with cough. He was told to use cough syrup but did not get any because they have sugar in them. The cough has persisted and it seems like he is now experiencing chest congestion. He missed his Insulin dose yesterday and did not take any today because he hasn't had anything to eat today and he is instructed to take it when he eats. He admits that he been drinking juice and soda pop throughout the day. Here in the emergency department the patient is borderline tachycardic, otherwise afebrile with stable vital signs and examination as above. Meds given: 1 L IV fluids, thereafter tachycardia resolved and patient reported feeling better. Labs notable as below: CBC: Leukocytosis of 11.7, stable HCT CMP: notable for hyperglycemia of 466, BUN of 34 slightly increased from baseline, creatinine of 1.75 at regular baseline, Na of 130 which corrects to normal No significant electrolyte abnormalities Troponin: negative Chest x-ray: IMPRESSION: No acute disease is seen in the one view chest. Cause of cough is not identified. EKG: Sinus tachycardia rate [address] or T wave changes Anterior Q waves present Compared to prior EKG of 01/31/17 patient is now tachycardic however there are no other acute changes present Overall presentation consistent with bronchitis. She requests codeine cough syrup. No evidence of pneumonia. Patient is hyperglycemic though without any evidence of complication as a result thereof. Patient advised to avoid drinking sugary juice and take prescribed insulin. I see no indication for admission or further workup at this time. No recent major risk factors for pulmonary embolism and overall presentation not suggestive thereof. Prior to discharge follow-up and return precautions were reviewed in detail with the patient who verbalized understanding and agreement with the plan. The patient was discharged in stable condition. Time of Eval: 20:06 Re-Evaluation/Progress Note: Pt rechecked. Informed pt of plan for treatment. Pt understands and agrees with plan for treatment. F/U instructions and RTER warnings given. All questions addressed. Counseled Regarding: Diagnosis, Lab results, Need for follow-up, When/why to return to ED Discharge & Departure Primary Impression: URI (upper respiratory infection) URI type: unspecified URI Qualified Code: J06.9 - Acute upper respiratory infection, unspecified Additional Impressions: Hyperglycemia Noncompliance with medication regimen Disposition: Home Discharge Condition All VS Reviewed: Yes Condition: Stable Patient Instructions: Upper Respiratory Infection (ED) Additional Instructions: Thank you for seeking care at the emergency room. It is difficult for us to make definitive diagnoses in the ED but we believe that you are experiencing a viral upper respiratory infection. Our primary goal today in the ED was to evaluate you for any life-threatening conditions. Your evaluation was reassuring. The chest x-ray showed no sign of pneumonia. The EKG was normal. Labs were normal other than high blood glucose of 466. You will be discharged with a prescription for codeine guaifenesin cough syrup. Take this as directed. You should follow-up with your primary doctor in the next week. You should return to the ED immediately if you develop fevers, vomiting, shortness of breath, lightheadedness, weakness or any other concerning signs or symptoms. Thank you for letting us partake in your care today. Referrals: Terrance Peoples DO (PCP) Scribe Attestation Portions of this note were transcribed by Kunal Tony. I, Dr. Marrero, personally performed the history, physical exam and medical decision-making; I reviewed and confirmed the accuracy of the information in the transcribed note. Signed by Kendall King, 04/16/17 - 1829 copies to: Terrance Peoples Beck O MD Apr 16, 2017 18:21 KUNAL TONY Apr 16, 2017 18:24
[2017-04-16] MEDS ORDERED: 0.9% Sodium Chloride 1,000 ML IV ONE (18:25)
[2017-04-16 19:09] LABS: BASOPHILS % (AUTO) 0.4 % (0-3); EOSINOPHILS % (AUTO) 2.7 % (0-5); MONOCYTES % (AUTO) 7.3 % (4-12); Mean Corpuscular Hemoglobin 29.3 pg (27.0-35.0); Mean Corpuscular Volume 81.6 fL (81-100); NEUTROPHILS % (AUTO) 75.1 % (40-74); Platelet Count 269 bil/L (150-400)
[2017-04-16 19:33] LABS: TROPONIN T < 0.010 ug/L (0.0-0.011)
[2017-04-16] MEDS ORDERED: GUAI118L13 PO (20:05)
[2017-04-16 20:31] VITALS: BP 134/81; PULSE 100; RESP 19; O2SAT 97
--- NOTE | 2017-04-16 21:15 | NUR ---
ED BALANCER Note D/A/P: BALANCER requested to arrange transportation home for Pt. Pt reported that he has Medicaid and usually receiveds a cab ride home from the ED. BALANCER spoke with Registration and with [employer] and was informed that Pt is currently on a spend down and so ineligible for transportation benefits. Pt was informed of this and requested that BALANCER call [employer] to take him home. Pt reported that he had a small amount of corrigan that he could use to pay for the ride. BALANCER arranged for [employer] to transport Pt home. Ashley Landaverde, RUBEN, AAC
== END 2017-04-16 20:30 | disposition home or self-care (01) ==
LOC: SED 17:23
DX: J06.9 Acute upper respiratory infection, unspecified (principal); E11.65 Type 2 diabetes mellitus with hyperglycemia; I10 Essential (primary) hypertension; E78.5 Hyperlipidemia, unspecified; E03.9 Hypothyroidism, unspecified; Z79.899 Other long term (current) drug therapy; Z88.0 Allergy status to penicillin; Z88.1 Allergy status to other antibiotic agents; Z88.8 Allergy status to other drugs, medicaments and biological substances; Z91.041 Radiographic dye allergy status; Z91.040 Latex allergy status; Z91.018 Allergy to other foods; Z79.4 Long term (current) use of insulin
CPT/HCPCS: 36415; 71010; 80053; 83735; 84484; 85025; 93005; 96360; 99285; J7030

== ENCOUNTER 2017-06-01 11:14 | Inpatient (IN) | payer MEDICARE ==
[2017-06-01] VITALS (9 sets, daily range): BP systolic 87–130; BP diastolic 48–78; PULSE 65–81; RESP 14–20; O2SAT 93–97
[~2017-06-01] VITALS: Ht 162.6 cm; Wt 116.0 kg
[~2017-06-01 11:14] MED LIST changes: +GUAI118L13 PO
--- NOTE | 2017-06-01 11:30 | ED.REPORT ---
HPI-General Illness Date of Service Jun 01, 2017 ED Provider: Blair Alvarez DO Pt is a 61 year old male with a hx of DM, HTN, hyperlipidemia, depression and CVA presenting to the ED from for low blood pressure and falling asleep. He states that he took his morning meds and then has felt sleepy ever since. Denies any recent change in medication, but reports that occasionally the trazodone makes him tired. Pt was feeling fine yesterday. Denies any wheezing, nausea, vomiting, or chest pain. Pt was sent from for low blood pressure but arrives to the ED with normal BP. Nursing Notes Stated Complaint: SENT OVER FROM Chief Complaint: General Complaint Nursing Notes Reviewed: Yes Allergies: Coded Allergies: Contrast Media (Verified Allergy, Unknown, 04/28/16) NSAIDS (Non-Steroidal Anti-Inflamma (Verified Allergy, Unknown, 04/28/16) Penicillins (Verified Allergy, Unknown, 04/28/16) Shellfish (Verified Allergy, Unknown, 04/28/16) Envuxdv-Ilt-Hfw Reductase Inhibitor (Verified Allergy, Unknown, 04/28/16) aspirin (Verified Allergy, Unknown, 04/28/16) clindamycin (Verified Allergy, Unknown, 04/28/16) ergotamine (Verified Allergy, Unknown, 04/28/16) latex (Verified Allergy, Unknown, 04/28/16) sumatriptan (Verified Allergy, Unknown, 04/28/16) tomato (Verified Adverse Reaction, Severe, Anaphylaxis, 04/28/16) Raw tomoto and sun dried tomato. Cooked tomao is fine. Uncoded Allergies: AVOCADOS (Allergy, Unknown, 07/02/15) BEES (Allergy, Unknown, 07/16/14) IV CONTRAST (Allergy, Unknown, 07/16/14) SWEETENERS (Allergy, Unknown, 07/16/14) Includinc low cals, stevia, truvia Eggplant (Adverse Reaction, Severe, Anaphylaxis, 05/28/14) Scheduled Bupropion ER (Wellbutrin SR) 150 Mg Tablet.er 150 MG PO BID Clonazepam (Clonazepam) 1 Mg Tablet 1.5 MG PO HS Clonidine (Clonidine) 0.1 Mg Tablet 0.1 MG PO BIDAC Diphenhydramine Hcl (Benadryl) 50 Mg Capsule 25 MG PO HS Doxepin (Doxepin) 100 Mg Capsule 100-200 MG PO HS Finasteride (Finasteride) 5 Mg Tablet 5 MG PO AM Fluticasone Propionate (Fluticasone Propionate Nasal) 16 Gm [place].susp 2 SPRAY NS DAILY Gabapentin (Gabapentin) 100 Mg Capsule 100 MG PO TID Insulin Glargine (Lantus U100 Solostar Insulin Pen) 100 Unit/1 Ml Insuln.pen 8 UNIT SUBQ MORNING Ketoconazole (Ketoconazole) 120 Ml Shampoo 1 APPL TOPICAL DAILY lather, leave in place for 5 minutes, then rinse off with water immediately. Levothyroxine (Levothyroxine) 75 Mcg Tablet 75 MCG PO DAILY Paroxetine (Paxil) 30 Mg Tablet 60 MG PO HS Testosterone Cypionate (Depo-Testosterone) 200 Mg/1 Ml Depoinj 0.625 ML IM [id number] last dose per pt was Tuesday12/19/2015 Verapamil (Verapamil) 120 Mg Tablet 120 MG PO TID Scheduled PRN Cyclobenzaprine (Cyclobenzaprine) 10 Mg Tablet 10 MG PO BIDAC PRN PRN Spasm Diazepam (Valium) 2 Mg Tablet 2 MG PO TID PRN PRN vertigo Epinephrine (Epipen 2-Jacob) 0.3 Mg/0.3 Ml Auto.injct 0.3 MG IJ PRN PRN PRN For Anaphyllaxis Guaifenesin/Codeine Phosphate (Cheratussin AC Syrup) 118 Ml Liquid 5 ML PO TID PRN PRN For Cough Meclizine HCl (Meclizine HCl) 25 Mg Tablet 25 MG PO TID PRN PRN . Naloxone HCl (Evzio) 0.4 Mg/0.4 Ml Auto.injct 0.4 MG IJ PRN PRN PRN SOMULANT Promethazine (Promethazine) 25 Mg Tablet 25 MG PO Q4-6H PRN PRN For Nausea Tramadol (Tramadol) 50 Mg Tablet 100 MG PO Q6H PRN PRN For Pain oxyCODONE-Acetaminophen 5-325 mg (oxyCODONE-Acetaminophen 5-325 mg) 1 Each Tablet 1-2 TAB PO Q6H PRN PRN For Pain General Time Seen by MD: 11:26 Chief Complaint Other (Fatigue) Hx Obtained From: Patient Arrived By: Wheelchair Sudden in Onset?: No Onset Occurred: Onset unknown Severity: Current: No pain currently Severity: Maximum: No pain Recent Healthcare: No recent hospitalization, Recent doctor visit Similar Sx Previous: No Past Medical History Past Medical History Notes: PCP: Dr. Peoples Neurologist: Dr. 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 Renal insufficiency Seborrhea Seborrheic dermatitis PTSD Reports: Diabetes mellitus, Hyperlipidemia, Hypertension Reports: Depression Past Surgical History Bilateral breast reduction Lap band surgery 3 debridements Total knee replacement. Distal end of femur Distal end of left clavical surgically removed Hysterectomy Reports: Cholecystectomy Family History Noncontributory Smoking History Never Smoker Social History Alcohol Use: "Social" Drug Use: Denies drug use Other Social History: Local resident Ambulatory Status Wheelchair Review of Systems Reported low blood pressure Full Review of Systems Constitutional: Reports: Fatigue, Denies: Fever Respiratory: Denies: Wheezing Cardiovascular: Denies: Chest pain GI: Denies: Nausea, Vomiting Complete sys rev & neg: except as marked. Physical Exam Vital Signs Vital Signs Date Time Temp Pulse Resp B/P Pulse Ox O2 Delivery O2 Flow Rate FiO2 06/01/17 14:18 65 14 100/48 96 Room Air 06/01/17 12:04 75 14 87/54 96 Room Air 06/01/17 11:19 36.6 72 20 106/60 95 Room Air Initial VS: Reviewed Head / Eyes: Atraumatic, Normocephalic, PERRL ENT: Mucous membranes moist, Conjunctiva normal, No scleral icterus Neck: Supple, Non-tender, Full range of motion Respiratory: Breath sounds normal, Clear to auscultation, No respiratory distress Cardiovascular: Regular rate & rhythm, Heart sounds normal, Intact distal pulses Abdomen / GI: Soft, Non-tender, No guarding, No rebound, No distention Back: No CVA tenderness Extremities: Vascular intact, Neuro intact, No swelling, No tenderness Skin: Warm, Dry, No cyanosis General/Constitutional: Awake Appearance / Presentation: Positive: Obese Somnolent and dishevelled. Interpretation & Diagnostics Urine Tox: Negative Lab Results Interpretation Result Diagram: 06/01/17 1230 06/01/17 1425 Test 06/01/17 12:30 06/01/17 14:23 06/01/17 14:25 White Blood Count 8.4th/mm3 (3.8-10.1) Red Blood Count 5.62mil/mm3 (4.40-5.80) Hemoglobin 16.2g/dL (13.8-17.2) Hematocrit 48.6% (41.0-50.0) Mean Corpuscular Volume 86.5fL (81-100) Mean Corpuscular Hemoglobin 28.8pg (27.0-35.0) Mean Corpuscular Hemoglobin Concent 33.3% (32.0-37.0) Red Cell Distribution Width 14.6% (12.3-15.4) Platelet Count 173bil/L (150-400) Neutrophils (%) (Auto) 38.5% (40-74) Lymphocytes (%) (Auto) 45.5% (14-46) Monocytes (%) (Auto) 12.1% (4-12) Eosinophils (%) (Auto) 1.0% (0-5) Basophils (%) (Auto) 2.3% (0-3) Hematology Comments Magnesium Level 1.6mg/dL (1.6-2.6) Total Bilirubin 0.7mg/dL (0.0-1.2) Aspartate Amino Transf (AST/SGOT) 58U/L (0-50) Alanine Aminotransferase (ALT/SGPT) 119U/L (0-44) Alkaline Phosphatase 116U/L (25-160) Total Protein 7.7g/dL (6.4-8.4) Albumin 4.0g/dL (3.4-5.0) Procalcitonin 1.57ng/mL (0.00-0.08) Alcohols < 10mg/dL (0-10) Urine Color Dark yellow (YELLOW) Urine Appearance Clear (CLEAR,HAZY) Urine pH 5.5 (5.0-8.0) Urine Specific [place] 1.020 (1.003-1.035) Urine Protein Tracemg/dL (NEG,TRACE) Urine Glucose (UA) >1000mg/dL (NEGATIVE) Urine Ketones Tracemg/dL (NEGATIVE) Urine Occult Blood Negative (NEGATIVE) Urine Nitrite Negative (NEGATIVE) Urine Bilirubin Negative (NEGATIVE) Urine Urobilinogen Normalmg/dL (NORMAL) Urine Leukocyte Esterase Negative (NEGATIVE) Urine RBC 0-2/hpf (0-2) Urine WBC 0-5/hpf (0-5) Urine Epithelial Cells Occasional/hpf (NONE-MOD) Urine Crystals None seen (NONE SEEN) Urine Bacteria Many/hpf (NONE-FEW) Urine Hyaline Casts Occasional/lpf (NONE) Urine Granular Casts None seen (NONE SEEN) Urine Waxy Casts None seen (NONE SEEN) Urine Red Blood Cell Casts None seen (NONE SEEN) Urine White Blood Cell Casts None seen (NONE SEEN) Urine Mucus None seen (None Seen) Urine Trichomonas None seen (NONE SEEN) Urine Yeast None (NONE SEEN) Urinalysis Comment None Urine Culture Reflexed Indicated Activated Partial Thromboplast Time 30.3sec (22.8-33.0) Sodium Level 138mEq/L (134-144) Potassium Level 4.8mEq/L (3.5-5.2) Chloride Level 106mEq/L (97-108) Carbon Dioxide Level 16mmol/L (18-29) Blood Urea Nitrogen 33mg/dL (8-27) Creatinine 2.78mg/dL (0.76-1.27) Estimat Glomerular Filtration Rate 25mL/min (>59) Glucose Level 156mg/dL (60-99) Lactic Acid Level 1.9mmol/L (0.4-2.0) Calcium Level 8.1mg/dL (8.5-10.1) Troponin T 0.083ug/L (0.0-0.011) ECG Interpretation ECG Interpretation: No ST changes. No change from previous. Time: 13:17 Interpreted by: ED physician Normal ECG Interpretation: Normal sinus rhythm X-Ray Chest Interpretation Chest Xray Interpretation: IMPRESSION: No acute cardiopulmonary disease. Dictated by: Jerry Fishman M.D. on 06/01/2017 at 13:49 View: Portable, 1 view Interpretation / Wet Read by: Interpret - Radiologist CT Head Interpretation IMPRESSION: 1. No acute post traumatic abnormalities. 2. Age-related atrophy and chronic deep white matter ischemic changes. 3. Multiple areas of chronic ischemic insults. Dictated by: Brad Sanchez M.D. on 06/01/2017 at 13:53 Study: Head CT no contrast Interpretation / Wet Read by: Interpret - Radiologist Re-Eval/Medical Decision Med Decision/Clinical Course Hypotension and decreased level of consciousness of unclear significance. The patient does have acute kidney injury with hyperkalemia. IV calcium given for the hyperkalemia, repeat potassium has normalized. The patient's hypotension has responded to aggressive IV fluids. the patient's troponin is elevated without significant EKG findings nor particular cardiorespiratory symptoms. Heparin is initiated. Will plan to admit the patient. Time of Eval: 12:29 Patient Status: Condition improved Re-Evaluation/Progress Note: Pt resting comfortably. Nurse was able to place an IV. Time of Eval: 12:53 Patient Status: Condition improved Re-Evaluation/Progress Note: Pt BP 80/41. Time of Eval: 13:10 Patient Status: Condition improved Re-Evaluation/Progress Note: Pt reports that he usually goes to sleep around 10 pm, so he does not usually sleep during the day. Denies any new pain or urinary symptoms. BP 81/42. Time of Eval: 13:41 Patient Status: Condition improved Re-Evaluation/Progress Note: Discussed lab results. Pt reports that he had some chest pressure and trouble breathing yesterday but has had none today and none at the moment. He attributed it to allergies and being outside. Time of Eval: 14:02 Patient Status: Condition improved Re-Evaluation/Progress Note: Discussed x ray and CT results. Time of Eval: 14:17 Patient Status: Condition improved Re-Evaluation/Progress Note: BP 95/49. Pt reports feeling a bit better and more awake. Consultation #1: Referral / Consult Name: Radha Guidry MD Consulted With: Cardiology Call Returned at: 14:03 Note: Proceed with volume resuscitation. Start Heparin, will need cath eventually. Consultation #2: Referral / Consult Name: Piter Grant MD Consulted With: Hospitalist Call Returned at: 14:59 Chain Maker Loom Control: Will see patient, Agrees with plan, Accepts admit Counseled Regarding: Diagnosis, Lab results, Need for admission Discharge & Departure Primary Impression: Acute kidney injury Disposition: ADMITTED TO HOSPITAL Discharge Condition All VS Reviewed: Yes Condition: Improved Referrals: Terrance Peoples DO (PCP) Crit Care Except Billable Proc Time Spent: 75-104 minutes Services Performed: Patient management by me, Time spent at bedside, Reviewing test results Critical Care Notes: See MDM Scribe Attestation Portions of this note were transcribed by Ayesha Yang. IDr. Alvarez personally performed the history, physical exam and medical decision-making; I reviewed and confirmed the accuracy of the information in the transcribed note. Signed by: Kendall Esteves, 06/01/2017. copies to: Terrance Peoples Timothy S DO Jun 01, 2017 11:30 AYESHA YANG Jun 01, 2017 11:38
[2017-06-01] MEDS ORDERED: 0.9% Sodium Chloride 1,000 ML IV ONE ×2 (11:36→13:20)
[2017-06-01] MEDS ORDERED: Ondansetron 2 mg/mL 2 mL Inj IV PRN (11:40)
[2017-06-01 12:51] LABS: BASOPHILS % (AUTO) 2.3 % (0-3); Platelet Count 173 bil/L (150-400)
[2017-06-01 12:55] LABS: MONOCYTES % (AUTO) 12.1 % (4-12); Mean Corpuscular Hemoglobin 28.8 pg (27.0-35.0); Mean Corpuscular Volume 86.5 fL (81-100); NEUTROPHILS % (AUTO) 38.5 % (40-74)
[2017-06-01 13:16] LABS: Magnesium 1.6 mg/dL (1.6-2.6)
[2017-06-01] MEDS ORDERED: 0.9% Sodium Chloride 1,000 ML IV SCH (13:20)
[2017-06-01] MEDS ORDERED: Calcium GLUCOnate 10% (Gm) 1 Gm/10 mL Inj IVPUSH ONE (13:50)
--- NOTE | 2017-06-01 13:52 | DRSVH ---
PROCEDURE: X-RAY CHEST ONE VIEW, PORTABLE ([id number]) INDICATIONS: 61 year-old male with hypotension. TECHNIQUE: One view of the chest was acquired. COMPARISON: [facility], CT, CT ABD PELVIS WO CON, 12/15/2016, 18:47. [facility], CR, XR CHEST 1VW (PORTABLE), 04/16/2017, 17:44. [facility], CR, XR CHEST 2VW, 017, 14:54. [facility], CR, XR CHEST 1VW (PORTABLE), 12/15/2016, 16:19. FINDINGS: Surgical changes and devices: Patient is status post gastric banding surgery as before. Lungs and pleura: No pleural effusions or pneumothorax. Lungs are clear. Mediastinum: Mediastinal contours appear normal. Heart size is normal. Bones and chest wall: No suspicious bony lesions. Overlying soft tissues appear unremarkable. IMPRESSION: No acute cardiopulmonary disease. Dictated by: Jerry iFshman M.D. on 06/01/2017 at 13:49 Approved by: Jerry Fishman M.D. on 06/01/2017 at 13:50
--- NOTE | 2017-06-01 14:01 | DRSVH ---
PROCEDURE: CT BRAIN WITHOUT CONTRAST ([id number]) INDICATIONS: aloc TECHNIQUE: Noncontrast 4.5 mm thick angled axial sections acquired from the foramen magnum to the vertex, with c oronal reformats. COMPARISON: 01/31/2017 CT brain FINDINGS: Image quality: Excellent. CSF spaces: Basal cisterns are patent. No extra-axial fluid collections. The ventricles are symmet orxi in size and shape. Brain: No intracranial bleeds or masses. There is cerebral volume loss for age, with resultant vent ricular and sulcal prominence. There are periventricular and deep white matter chronic small vessel ischemic changes. Unchanged are chronic ischemic insults in the right frontal lobe, left basal gangli a at the caudate nucleus, cortical medullary junction of the left frontal parietal lobe and periphery of the right cerebellum. There is intracranial internal carotid artery atherosclerosis. Skull and face: Calvarium and visualized facial bones appear intact, without suspicious lesions. Sinuses: Visualized sinuses and mastoids are clear. IMPRESSION: 1. No acute post traumatic abnormalities. 2. Age-related atrophy and chronic deep white matter ischemic changes. 3. Multiple areas of chronic ischemic insults. Dictated by: Brad Sanchez M.D. on 06/01/2017 at 13:53 Approved by: Brad Sanchez M.D. on 06/01/2017 at 13:59
[2017-06-01] MEDS ORDERED: Heparin 25K Unit/500mL 0.45 NS 25,000 UNIT in IV Premix 1 EACH IV ONE (14:10)
[2017-06-01] MEDS ORDERED: Heparin 5,000 Unit/mL Inj IVPUSH ONE (14:10)
[2017-06-01 14:37] LABS: APPEARANCE,URINE CLEAR (CLEAR,HAZY); COLOR,URINE DARK YELLOW (YELLOW); OCCULT BLOOD,URINE NEGATIVE (NEGATIVE); PH,URINE 5.5 (5.0-8.0); UROBILINOGEN,URINE NORMAL (NORMAL)
[2017-06-01] MEDS ORDERED: Insulin Human REGular Inj 100 UNIT in 0.9% Sodium Chloride-Pha MIX 100 ML IV SCH (15:11)
[2017-06-01] MEDS ORDERED: Ondansetron 2 mg/mL 2 mL Inj IVPUSH PRN (15:15)
[2017-06-01] MEDS ORDERED: Polyethylene Glycol (PEG) 17 Gm Powder PO PRN (15:15)
[2017-06-01] MEDS ORDERED: Alum-Mag Hydrox-Simeth 30 mL Suspension PO PRN (15:15)
[2017-06-01 15:18] LABS: TROPONIN T 0.083 ug/L (0.0-0.011)
--- NOTE | 2017-06-01 17:34 | DRSVH ---
PROCEDURE: US RENAL SONOGRAM INDICATIONS: new [place] TECHNIQUE: Real-time scanning was performed of the kidneys and bladder, with image documentation. COMPARISON: None. FINDINGS: Kidneys: Kidneys are normal in size. Right kidney measures 10 cm long; left kidney measures 12 cm l meagan. Right renal cortical thickness is 1 cm; left renal cortical thickness is 0.8 cm. Renal cortica l echotexture is normal. No hydronephrosis or nephrolithiasis. No suspicious solid mass lesions. Bladder: Weller catheter in the bladder. Miscellaneous: No free pelvic fluid. IMPRESSION: Ultrasonographically normal kidneys. Weller catheter in a decompressed bladder. Fatty live r is noted. Dictated by: Naga Hennessy M.D. on 06/01/2017 at 17:31 Approved by: Naga Hennessy M.D. on 06/01/2017 at 17:32
[2017-06-01] MEDS ORDERED: ACET325C PO (17:41)
[2017-06-01] MEDS ORDERED: DIPH25CA6 PO (17:41)
--- NOTE | 2017-06-01 18:34 | PCM.HPMED ---
Subjective Date of Service Jun 01, 2017 Primary Provider: Admitting Physician: Piter Grant MD Primary Care Physician: Terrance Peoples DO Attending Physician: Piter Grant MD Chief Complaint: Altered mental status and hypotension admitted from PCP clinic. History of Present Illness: Mr. Yessenia Akhtar is a 61 year old gentleman with a history of DM, HTN, hyperlipidemia, depression and CVA presenting to the ED from his primary care physicians office during a routine visit and the patient's physician Dr. GASCA advised patient to go to the ED for low blood pressure and somnolence during interview. He states that he took his morning meds and then has felt sleepy ever since. Denies any recent change in medication, but reports that occasionally the trazodone makes him tired. Pt was feeling fine yesterday aside from a brief stent of shortness of breath. Denies any wheezing, nausea, vomiting , or chest pain. In the ED the patients vitals were as follows. T 36.6, HR 72, RR 20, BP 106/60, 95% RA. Patient was treated with 2L NS and heparin ggt started, Calcium gluconate given. Tropes ++ 0.103 and no acute EKG changes. Potassium 6.3, glucose 209, AST/ALT 58 /119, Cr 2.98, BUN 34, Review of Systems: A comprehensive review of systems was conducted with the patient and found to be negative except as above in the History of Present Illness. Allergies Coded Allergies: Contrast Media (Verified Allergy, Unknown, 04/28/16) NSAIDS (Non-Steroidal Anti-Inflamma (Verified Allergy, Unknown, 04/28/16) Penicillins (Verified Allergy, Unknown, 04/28/16) Shellfish (Verified Allergy, Unknown, 04/28/16) Hicwgxs-Wdr-Vnp Reductase Inhibitor (Verified Allergy, Unknown, 04/28/16) aspirin (Verified Allergy, Unknown, 04/28/16) clindamycin (Verified Allergy, Unknown, 04/28/16) ergotamine (Verified Allergy, Unknown, 04/28/16) latex (Verified Allergy, Unknown, 04/28/16) sumatriptan (Verified Allergy, Unknown, 04/28/16) tomato (Verified Adverse Reaction, Severe, Anaphylaxis, 04/28/16) Raw tomoto and sun dried tomato. Cooked tomao is fine. Uncoded Allergies: AVOCADOS (Allergy, Unknown, 07/02/15) BEES (Allergy, Unknown, 07/16/14) IV CONTRAST (Allergy, Unknown, 07/16/14) SWEETENERS (Allergy, Unknown, 07/16/14) Includinc low cals, stevia, truvia Eggplant (Adverse Reaction, Severe, Anaphylaxis, 05/28/14) Home Medications Bupropion ER (Wellbutrin SR) 150 Mg Tablet.er 150 MG PO BID Clonazepam (Clonazepam) 1 Mg Tablet 1.5 MG PO HS Clonidine (Clonidine) 0.1 Mg Tablet 0.1 MG PO BIDAC Diphenhydramine Hcl (Benadryl) 50 Mg Capsule 25 MG PO HS Doxepin (Doxepin) 100 Mg Capsule 100-200 MG PO HS Finasteride (Finasteride) 5 Mg Tablet 5 MG PO AM Fluticasone Propionate (Fluticasone Propionate Nasal) 16 Gm [place].susp 2 SPRAY NS DAILY Gabapentin (Gabapentin) 100 Mg Capsule 100 MG PO TID Insulin Glargine (Lantus U100 Solostar Insulin Pen) 100 Unit/1 Ml Insuln.pen 8 UNIT SUBQ MORNING Ketoconazole (Ketoconazole) 120 Ml Shampoo 1 APPL TOPICAL DAILY lather, leave in place for 5 minutes, then rinse off with water immediately. Levothyroxine (Levothyroxine) 75 Mcg Tablet 75 MCG PO DAILY Paroxetine (Paxil) 30 Mg Tablet 60 MG PO HS Testosterone Cypionate (Depo-Testosterone) 200 Mg/1 Ml Depoinj 0.625 ML IM [id number] last dose per pt was Tuesday12/19/2015 Verapamil (Verapamil) 120 Mg Tablet 120 MG PO TID Scheduled PRN Cyclobenzaprine (Cyclobenzaprine) 10 Mg Tablet 10 MG PO BIDAC PRN PRN Spasm Diazepam (Valium) 2 Mg Tablet 2 MG PO TID PRN PRN vertigo Epinephrine (Epipen 2-Jacob) 0.3 Mg/0.3 Ml Auto.injct 0.3 MG IJ PRN PRN PRN For Anaphyllaxis Guaifenesin/Codeine Phosphate (Cheratussin AC Syrup) 118 Ml Liquid 5 ML PO TID PRN PRN For Cough Meclizine HCl (Meclizine HCl) 25 Mg Tablet 25 MG PO TID PRN PRN . 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 Renal insufficiency Seborrhea Seborrheic dermatitis PTSD Reports: Diabetes mellitus, Hyperlipidemia, Hypertension Reports: Depression Surgical History Bilateral breast reduction Lap band surgery 3 debridements Total knee replacement. Distal end of femur Distal end of left clavical surgically removed Hysterectomy Cholecystectomy Family History Father Heart disease Mother Capsulated renal cancer Social History Hx Alcohol Use: Yes (occasional socially) Hx Substance Use: No Hx Tobacco Use: No Smoking Status: Never Smoker Exam Vital Signs Vital Sign - Last Date Time Temp Pulse Resp B/P Pulse Ox O2 Delivery O2 Flow Rate FiO2 06/01/17 16:59 36.3 69 17 130/78 97 Room Air Exam Head / Eyes: Atraumatic, Normocephalic, PERRL ENT: Mucous membranes moist, Conjunctiva normal, No scleral icterus Neck: Supple, Non-tender, Full range of motion Respiratory: Breath sounds normal, Clear to auscultation, No respiratory distress Cardiovascular: Regular rate & rhythm, Heart sounds normal, Intact distal pulses Abdomen / GI: Soft, Non-tender, No guarding, No rebound, No distention Back: No CVA tenderness Extremities: Vascular intact, Neuro intact, No swelling, No tenderness Skin: Warm, Dry, No cyanosis General/Constitutional: Awake Appearance / Presentation: Positive: Obese Lab and Diagnostics Result Diagram: 06/01/17 1230 06/01/17 1425 X-Rays, CTs and MRIs CT BRAIN WITHOUT CONTRAST IMPRESSION: 1. No acute post traumatic abnormalities. 2. Age-related atrophy and chronic deep white matter ischemic changes. 3. Multiple areas of chronic ischemic insults. Dictated by: Brad Sanchez M.D. on 06/01/2017 at 13:53 Additional Diagnostics: US RENAL SONOGRAM IMPRESSION: Ultrasonographically normal kidneys. Weller catheter in a decompressed bladder. Fatty liver is noted. Dictated by: Naga Hennessy M.D. on 06/01/2017 at 17:31 Assessment & Plan Altered mental status, present on admission. Resolved. - Possibly polypharmacy, dehydration, glucose related... - Brain CT as above. Elevated troponins, present on admission. Active. - likely demand ischemia in the setting of acute renal injury. - Cardilogy consulted, recommendations appreciated. - Not a cath candidate. - ECHO ordered. Prior echo in 2014 - Heparin ggt. - Follow Troponin Q8H. Acute on chronic renal injury, present on admission. Active. - Likely 2nd to prerenal causes ie.. decreased PO intake. - Cr on admit 2.98, baseline 1.8 - Continue IV fluids, NS @125/hr - MARYBETH as above. Chronic or resolving issues. Acute Hypotension, present on admission. Resolved. - Continue IV hydration. Hyperkalemia, present on admission. Resolved. - Admit potassium 6.3. - Calcium gluconate given, - Insulin at home doses. Insulin dependent Diabetes mellitus - Continue home insulin. - Diabetic diet, holding artificial sweeteners due to allergy. - HA1c pending. Elevated transaminases - Unclear etiology - Ammonia ordered. Morbid Obesity - BMI 42.8 Depression - Continue home medications. Acetaminophen for mild pain when necessary. Bowel regimen Senna and MiraLAX scheduled and PRN. Zofran when necessary for nausea and vomiting. heparin ggt for now. SCDs in place. High-risk medications: IV Heparin ggt Patient Status: Patient is admitted under inpatient status with expected length of stay greater than 2 midnights due to severity of presenting symptoms, risk of adverse event, and complexity of treatment plan. Pain Evaluation: Adequate Pain Control Resuscitation Status: CPR: Attempt Resuscitation Attending Statement I interviewed and examined the patient with Dr. Patel. I agree with the assessment and plan as stated above. DOMINIC PATEL DO Jun 01, 2017 18:34 Piter Grant MD Jun 09, 2017 07:06
[2017-06-01] MEDS ORDERED: Glucose 40% Oral Gel 15 Gm Tube PO PRN (18:35)
--- NOTE | 2017-06-01 18:46 | NUR ---
Admit.. Pt admitted to 2018 from ER. Was fully conversant and oriented on arrival. Is afebrile. Is c/o of his chronic back pain 08/09, but denies any chest pain or SOB. B/P has normalized and is making urine per cabrera... oriented to CCU room and routines.
[2017-06-01] MEDS ORDERED: Dextrose 10% 250 ML IV PRN (18:50)
[2017-06-01] MEDS ORDERED: Heparin 25K Unit/500mL 0.45 NS 25,000 UNIT in IV Premix 1 EACH IV SCH (18:55)
[2017-06-01] MEDS ORDERED: Doxepin 50 mg Capsule PO PRN (20:55)
[2017-06-01] MEDS: Insulin LISPRO 300 Unit/3 mL Inj SUBQ SCH (21:37)
[2017-06-01] MEDS: PARoxetine 20 mg Tablet PO SCH (21:39)
[2017-06-01] MEDS: 0.9% Sodium Chloride 1,000 ML IV SCH (21:39)
[2017-06-01] MEDS: buPROPion SR 150 mg ER12 Tablet PO SCH (21:39)
[2017-06-01] MEDS ORDERED: Insulin LISPRO 300 Unit/3 mL Inj SUBQ SCH ×2 (22:00)
[2017-06-02] VITALS (12 sets, daily range): BP systolic 92–135; BP diastolic 52–78; PULSE 71–90; RESP 12–22; O2SAT 94–97
[2017-06-02] MEDS: 0.9% Sodium Chloride 1,000 ML IV SCH ×3 (05:09→18:55)
--- NOTE | 2017-06-02 06:31 | NUR ---
Pt is more drowsy this am but does wake easily. Gabapentin held due to drowsiness. Heparin continues to infuse. Vital signs stable. Will continue to monitor.
[2017-06-02] MEDS ORDERED: Heparin 5,000 Unit/mL Inj SUBQ SCH (08:30)
[2017-06-02] MEDS: Insulin LISPRO 300 Unit/3 mL Inj SUBQ SCH ×4 (08:36→22:03)
[2017-06-02] MEDS: cloNIDine 0.1 mg Tablet PO SCH ×2 (08:38→22:04)
[2017-06-02] MEDS: buPROPion SR 150 mg ER12 Tablet PO SCH ×2 (08:40→20:12)
[2017-06-02] MEDS ORDERED: Albuterol-Ipratropium 3 mL Inhalation Solution NEB ONE (10:15)
--- NOTE | 2017-06-02 10:33 | NUR ---
External chest pressure Patient reporting chest pressure on exertion & with deep breath, resolves at rest. Orthostatic blood pressure unremarkable. Continues in SR per cardiac monitor technician. MD notified, EKG ordered. Will continue to monitor.
--- NOTE | 2017-06-02 11:02 | NUR ---
spiritual care: pt request Visited with pt today who was grateful for a hollow tile partition erector visit. Conversational visit in which we talked at length about themes of jelly, family and pt's transition from female to male. Offered a prayer before leaving the room. Spiritual care will continue to follow as needed.
[2017-06-02] MEDS: Fluticasone 0.05% 15 Spray/2 Gm 16 Gm Nasal Spray NASAL SCH (11:55)
--- NOTE | 2017-06-02 13:05 | DRSVH ---
[facility] [address] [place] [address] Echocardiogram Report Name: MAXIMO CESAR Study Date: 06/02/2017 Height: 64 in Hospital Exam Location: [facility] Weight: 249 lb Gender: Male BSA: 2.1 m2 : 1955 Age: 61 yrs BP: 135/78 mmHg Reason For Study: Chest pain Ordering Physician: Performed By: Amanda Guzmán Referring Physician: Radha Guidry Interpretation Summary Normal sinus rhythm. Normal LV size, wall thickness. There is global hypokinesis; worst movement along with dyssynchrony is demonstrated by the septum. EF is 40-45%. Normal diastolic function. No significant valvular abnormalities. There is mild LA enlargement with aneurysm septum but no shunting. Compared to prior study 01/06/2015 LV is less dynamic. EF is down from 50-55% to 40-45%. Procedure: A two-dimensional transthoracic echocardiogram with color flow and Doppler was performed. The study quality was technically good. Comparison is made with the echocardiogram of 01-06-15. The patient was in normal sinus rhythm during the exam. Left Ventricle: The left ventricle is normal in size. There is normal left ventricular wall thickness. The ejection fraction is estimated to be 40-45%. Assessment of diastolic parameters indicates normal left ventricular diastolic function and normal filling pressures. Right Ventricle: The right ventricle is mild to moderately dilated. Right ventricular systolic function is moderately reduced. Atria: The left atrium is mildly dilated. Right atrial size is normal. The atrial septum is aneurysmal. The interatrial septum is intact with no evidence for an atrial septal defect. Mitral Valve: The mitral valve is normal in structure and function. There is no mitral regurgitation noted. Aortic Valve: The aortic valve is trileaflet. The aortic valve opens well. There is no aortic regurgitation. Tricuspid Valve: The tricuspid valve is normal in structure and function. There is trace tricuspid regurgitation. The right ventricular systolic pressure is estimated at 32 mmHg assuming a right atrial pressure of 8 mm Hg. Pulmonic Valve: The pulmonic valve is normal in structure and function. There is trace pulmonic regurgitation. Great Vessels: The aortic root is normal size. The dimensions of the ascending aorta are normal. The IVC is dilated (diameter is greater than 2.1 cm) yet it collapses greater than 50% with a sniff. This suggests a right atrial pressure of 8 mm Hg. Pericardium/ Pleura There is no pericardial effusion. There is no pleural effusion. MMode/2D Measurements & Calculations LVIDd: 4.6 cm LA dimension: 4.4 cm RA long axis: 4.3 cm Ao root diam LVIDs: 3.1 cm FS: 33.3 % LA A2 area: 23.8 cm RA area: 13.2 cm Aortic Jxn: 3.2 cm IVSd: 0.99 cm LA A4 area: 20.5 cm RA vol: 34.2 ml asc Aorta Diam LVPWd: 0.83 cmLA length (vol) RA : 15.9 ml/m RVDd major: 6.6 cm Ao Arch Diam (Prox LA vol: 80.6 ml Trans): 3.0 cm LA vol index IVC diam: 2.4 cm EDV(MOD-sp2) LV saeed. diameter/BSA LV sys. diameter/BSA RVD1 (basal) (cm/m^2): 2.1 (cm/m^2): 1.4 : 4.0 cm ESV(MOD-sp2) EF(MOD-sp2) RVD2 (mid) : 3.7 cm Doppler Measurements & Calculations Ao V2 max MV E max noam MV E/A: 1.2 TR max noam : 111.5 cm/sec : 98.2 cm/sec Med Peak E' Noam : 243.5 cm/sec Ao max PG MV A max noam TR max PG : 5.0 mmHg : 81.0 cm/sec E/E' med: 11.5 : 23.7 mmHg Ao mean PG Lat Peak E' Noam PA V2 max : 2.4 mmHg : 70.0 cm/sec E/E' lat: 11.7 PA mean PG E/e' average: 11.6 MV A dur: 0.12 sec PA Accel Time : 0.15 sec MV dec time Ao V2 mean PA V2 mean : 0.18 sec : 71.3 cm/sec : 45.5 cm/sec Ao V2 VTI: 20.7 cm Reading Physician:01:05 PM
[2017-06-02] MEDS ORDERED: Insulin GLARgine 100 Unit/mL Syringe SUBQ ONE (14:45)
--- NOTE | 2017-06-02 17:50 | NUR ---
Social Work: Initial Assessment Data: Pt is a 61 y/o male admitted for nstemi, GUANAKITO, hypotension. Pt's PCP is Dr Peoples, pt's insurance is [employer] [place] Medicare. EMR reviewed. Readmit score is 5, high. [employer] met with pt at bedside, role explained. Pt states that he lives in a single story apartment with their friend where he uses an electric wheelchair when his back hurts. Pt does not drive, pt has hx of HH with [facility], no hx of SNF, no LTC or VA benefits. Pt is not a caregiver. Pt requested information on house cleaning, [employer]ER will supply with Senior Resource book at a later time. Assessment: Pt who is independent at baseline, capable of self care at this time. Plan: Pt will d/c home, possibly via dial-a-ride when medically stable. [employer]UC[employer] ASSEMBLER will provide pt with Senior Resource book. [employer]ER will continue to follow. RUBEN Ruvalcaba Addendum: 06/02/17 at 1755 by GABRIELA HANNA Amended: Links added.
--- NOTE | 2017-06-02 18:14 | PCM.PNMED ---
Subjective Date of Service Jun 02, 2017 Subjective Mr. Yessenia Akhtar is a 61 year old gentleman with a history of DM, HTN, hyperlipidemia, depression and CVA presenting to the ED from his primary care physicians office during a routine visit and the patient's physician Dr. GASCA advised patient to go to the ED for low blood pressure and somnolence during interview. He states that he took his morning meds and then has felt sleepy ever since. Denies any recent change in medication, but reports that occasionally the trazodone makes him tired. Pt was feeling fine yesterday aside from a brief stent of shortness of breath. Denies any wheezing, nausea, vomiting , or chest pain. Overnight events: NONE. Today patient reports some mild chest pressure that is reproducible with palpation however he also reports chest pressure with exertion. Patient is resting in bed comfortably and in no acute distress. The patient reports feeling better than the day prior. The patient denies headache, dizziness, sore throat, cough, chest pain, shortness of breath, abdominal pain, nausea, vomiting , constipation, and diarrhea. The patient is voiding and eliminating without difficulty. The patient is ambulating without difficulty. Orthostatic blood pressures are wnl. Exam Vital Signs Vital Sign - Last Date Time Temp Pulse Resp B/P Pulse Ox O2 Delivery O2 Flow Rate FiO2 06/02/17 07:46 36.9 78 16 120/53 96 Room Air Intake and Output 06/01/17 06/01/17 06/02/17 Cumulative From/Thru 15:00 23:00 07:00 06/01/17 11:19 - 06/02/17 06:23 Intake Total 2000 ml 554 ml 772 ml 3326 ml Output Total 350 ml 600 ml 950 ml Balance 2000 ml 204 ml 172 ml 2376 ml Intake Oral 772 ml 772 ml IV Total 2000 ml 554 ml 2554 ml Output Urine Total 350 ml 600 ml 950 ml Exam Head / Eyes: Atraumatic, Normocephalic, PERRL ENT: Mucous membranes moist, Conjunctiva normal, No scleral icterus Neck: Supple, Non-tender, Full range of motion Respiratory: Breath sounds normal, Clear to auscultation, No respiratory distress Cardiovascular: Regular rate & rhythm, Heart sounds normal, Intact distal pulses Abdomen / GI: Soft, Non-tender, No guarding, No rebound, No distention Back: No CVA tenderness Extremities: Vascular intact, Neuro intact, No swelling, No tenderness Skin: Warm, Dry, No cyanosis General/Constitutional: Awake Appearance / Presentation: Positive: Obese IVs and Medications Medications Reviewed: Medications were reviewed in detail Lab and Diagnostics Result Diagram: 06/01/17 1230 06/02/17 0500 X-Rays, CTs and MRIs CT BRAIN WITHOUT CONTRAST IMPRESSION: 1. No acute post traumatic abnormalities. 2. Age-related atrophy and chronic deep white matter ischemic changes. 3. Multiple areas of chronic ischemic insults. Dictated by: Brad Sanchez M.D. on 06/01/2017 at 13:53 Cardiac Echo Impressions Echocardiogram Report Interpretation Summary Normal sinus rhythm. Normal LV size, wall thickness. There is global hypokinesis; worst movement along with dyssynchrony is demonstrated by the septum. EF is 40-45%. Normal diastolic function. No significant valvular abnormalities. There is mild LA enlargement with aneurysm septum but no shunting. Compared to prior study 01/06/2015 LV is less dynamic. EF is down from 50-55% to 40-45%. Additional Diagnostics US RENAL SONOGRAM IMPRESSION: Ultrasonographically normal kidneys. Weller catheter in a decompressed bladder. Fatty liver is noted. Dictated by: Naga Hennessy M.D. on 06/01/2017 at 17:31 Assessment & Plan Altered mental status, present on admission. Resolved. - Possibly polypharmacy, dehydration, glucose related... - Brain CT as above. Acute on chronic renal injury, present on admission. Resolved. - Likely 2nd to prerenal causes ie.. decreased PO intake. - Cr on admit 2.98, baseline 1.8, currently at baseline. - Continue IV fluids, NS @125/hr - MARYBETH as above. Elevated troponins, present on admission. Resolved. - likely demand ischemia in the setting of acute renal injury. - Cardilogy consulted, recommendations appreciated. - Not a cath candidate due to renal fx. - ECHO as above. - Follow Troponin Q8H. Chronic or resolving issues. Acute Hypotension, present on admission. Resolved. - Continue IV hydration. Hyperkalemia, present on admission. Resolved. - Admit potassium 6.3. - Calcium gluconate given, - Insulin at home doses. Insulin dependent Diabetes mellitus - Continue home insulin. - Diabetic diet, holding artificial sweeteners due to allergy. - HA1c - 9.8. Elevated transaminases - Unclear etiology, likely related to SOTOMAYOR. - Ammonia slightly elevated. Morbid Obesity - BMI 42.8 Depression - Continue home medications. Acetaminophen for mild pain when necessary. Bowel regimen Senna and MiraLAX scheduled and PRN. Zofran when necessary for nausea and vomiting. SQ heparin for now. SCDs in place. High-risk medications: Patient Status: Patient is admitted under inpatient status with expected length of stay greater than 2 midnights due to severity of presenting symptoms, risk of adverse event, and complexity of treatment plan. Pain Evaluation: Adequate Pain Control Resuscitation Status: CPR: Attempt Resuscitation Attending Statement The patient was seen and examined together with Dr. Patel on 06/02/2017 and I agree with the history, exam findings, and plan as outlined in the note above. I did participate in all aspects of the services provided today, including documentation and the plan of care. The patient continues to be asymptomatic with regard to troponin elevation and breathing is much improved. The patient feels stronger fluid resuscitation. Renal indices are improved. Anticipate discharge home tomorrow if no problems overnight. DOMINIC PATEL DO Jun 02, 2017 08:31 Benoit Young MD Jun 05, 2017 15:22
[2017-06-02] MEDS: PARoxetine 20 mg Tablet PO SCH (20:12)
[2017-06-02] MEDS ORDERED: Insulin GLARgine 100 Unit/mL Syringe SUBQ SCH (21:00)
[2017-06-03] MEDS: 0.9% Sodium Chloride 1,000 ML IV SCH ×2 (02:55→10:55)
[2017-06-03 03:19] VITALS: BP 142/75; PULSE 68; RESP 18; O2SAT 93
[2017-06-03 04:38] VITALS: PULSE 70
--- NOTE | 2017-06-03 05:11 | NUR ---
Chest pain, VS as noted. Reports chest discomforts only with deep breathing and cough, mostly left sided. Complained of headache at HS. Tylenol given x1 with relief. Up to bathroom with stand by assist. Tolerated well. Tele sinus rhythm 70s. IVF saline locked.
--- NOTE | 2017-06-03 05:25 | CONS ---
[address] [address] CONSULTATION REPORT PATIENT: MAXIMO CESAR : 1955 MR#: [id number] ADMIT: 06/01/2017 JOB ID: [id number] DATE OF SERVICE: 06/02/2017 CHIEF COMPLAINT: Fatigue. HISTORY OF PRESENT ILLNESS: The patient is a 61-year-old man with diabetes, hypertension, hyperlipidemia, prior stroke, depression and reduced functional status due to low back pain. The patient came to the emergency department complaining of feeling sleepy. In the emergency department, the patient was found to have elevated troponin T peaking at 0.1 in the setting of acute renal failure and cardiology is consulted to assist with management. Of note, the patient specifically denies chest discomfort, chest pain, palpitations or syncope. Right now the patient is pain free. The patient does not know what triggers his renal insufficiency and denies using ibuprofen, using other nonsteroidal anti-inflammatory drugs. The patient also denied frequent falls. PAST MEDICAL HISTORY: 1. Diabetes-uncontrolled, most recent hemoglobin A1c in clinic was 10.4%. 2. Hyperlipidemia-controlled with the exception of elevated triglycerides as of May 24, 2017. 3. Excess weight-body mass index is 45. 4. Limited mobility. The patient attributes this to spinal stenosis and protruding disks. The patient pain medication for this problem and uses a scooter when his back hurts. 5. Hypothyroidism-adequately replaced as of most recent thyroid check in clinic March 10, 2016. 6. 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 7. Posttraumatic stress disorder. 8. History of stroke. Most recent MRI in April 2014 demonstrated questionable areas within the right frontal and insular regions as well as right occipital lobe that . 9. History of kidney stone. 10. History of incomplete bladder emptying and microhematuria. SOCIAL HISTORY: The patient lives in [address]. The patient is a lifetime nonsmoker. FAMILY HISTORY: Significant for a kidney cancer and depression, allergies and alcoholism. ALLERGIES: Multiple, include medication allergies to: 1. CLINDAMYCIN. 2. CLARITHROMYCIN. 3. PENICILLIN. 4. ASPIRIN. 5. IODINATED CONTRAST AGENT. 6. LASIX. 7. STATINS. 8. NONSTEROIDAL ANTI-INFLAMMATORY DRUGS. HOME MEDICATIONS: 1. Verapamil 160 mg 3 times a day. 2. Bupropion. 3. Doxepin. 4. Cyclobenzaprine. 5. Gabapentin. 6. Paroxetine. 7. Topamax. 8. Testosterone injections. 9. Levothyroxine 75 mcg daily. 10. Lantus 38 units subcutaneously daily. 11. Clonidine 0.1 mg twice a day. 12. Clonazepam. 13. Diazepam. 14. Phenergan. Losartan appears on the [employer] list, but it did not appear on the medication reconciliation here in the hospital. CURRENT MEDICATIONS IN THE HOSPITAL: 1. Normal saline 125 mL/h. 2. Clonidine 0.1 mg twice a day. 3. Verapamil 160 mg 3 times a day. 4. Levothyroxine 75 mcg daily. 5. Paxil 60 mg daily. 6. Gabapentin 300 mg 4 times a day. 7. Doxepin as needed for anxiety. 8. Bupropion 150 mg twice a day. 9. Oral bowel regimen. REVIEW OF SYSTEMS: Significant for fatigue, weakness, somnolence and chronic low back pain with reduced mobility. The patient told the ED doctor that he had chest tightness the day prior to admission with breathing but denied this history to me. Otherwise 10 point review of systems is negative. PHYSICAL EXAMINATION: Obese man, lying flat in bed. No apparent distress. Temperature is 37.1 degrees, blood pressure 92/52 up to 135/78, pulse 71 up to 90 beats per minute, saturating 94-97% on room air. Eyes: No scleral icterus. Neck is supple. No lymphadenopathy. No carotid bruits. Heart: Normal S1, S2. No murmurs. Lungs: Clear to auscultation anteriorly. Abdomen is soft, positive bowel sounds. No hepatosplenomegaly. Extremities: Warm, well perfused. No clubbing, cyanosis or edema. Skin with multiple scratches. The patient says this has to do with his cat, but otherwise no rashes or lesions. Neuro exam is nonfocal. LABORATORIES: Were reviewed. Hematocrit is normal at 49%, creatinine 1.8, potassium 5.4. Troponin T peaked at 0.1 and then has been steadily coming down. Transaminases are elevated. AST 58, ALT 119. Creatinine on admission was 3. Lactic acid was elevated on admission at 2.6. INR was not checked on admission. Urinalysis showed negative nitrites, negative occult blood and significant glucosuria, negative leukocyte esterase. Echocardiogram: Normal sinus rhythm, global hypokinesis, worse movement in dyssynchrony is demonstrated along the septum. Ejection fraction is 40-45%. There is mild left atrial enlargement with aneurysmal septum, but no shunting. Compared to prior study January 06, 2015 LV is less dynamic. Ejection fraction is down from 50-55% to 40-45%. EKG: Normal sinus rhythm, 69 beats per minute, left axis deviation. No left ventricular hypertrophy. No significant ST segment changes. ASSESSMENT AND PLAN: In summary, this is a 61-year-old man with multiple coronary artery disease risk factors who was hypotensive in primary care provider's office and was referred to the emergency department where he is found to have acute renal failure with electrolyte disarray, in particular hyperkalemia. He was not uremic. Cardiology was consulted to assist with management of elevated troponin T of 0.1. Of course, the suspicion is high given multiple risk factors including uncontrolled diabetes, excess weight and history of prior stroke. Unfortunately, the patient is not a candidate for invasive therapy due to acute renal insufficiency. While it is improving with volume resuscitation, glomerular filtration rate remains reduced and patient is not a good candidate for catheterization from that standpoint. Of note, most recent creatinine as an outpatient, May 24, 2017, was 1.1. The patient's management is further complicated by a history of allergic reaction to aspirin, history of allergic reaction to iodinated contrast agents and excess weight. Therefore, I recommend medical management. He was previously completed a 24 course of heparin drip. I think this patient would benefit from changing medications to improve his LV systolic function. In particular, I think he would benefit from switching from verapamil to metoprolol or a beta jyoti. I think this patient would also benefit from starting an ALEJO inhibitor or angiotensin receptor jyoti for optimizing cardiomyopathy once his kidney function improved. Right now, he is not a good candidate for these drugs. I think his choices of antihypertensives drugs is kind of interesting and that he is on t.i.d. verapamil and clonidine. We need to find out more about that. I think this patient would benefit from Cardiology Clinic followup to work on risk factor modification and medical management of cardiomyopathy. Once his kidney function normalizes, we can consider him for invasive cardiac evaluation, but at this time given renal insufficiency the risk is prohibitive. Thank you very much for the opportunity to evaluate this patient.
[2017-06-03] MEDS: buPROPion SR 150 mg ER12 Tablet PO SCH (07:45)
[2017-06-03] MEDS: cloNIDine 0.1 mg Tablet PO SCH (07:45)
[2017-06-03] MEDS: Fluticasone 0.05% 15 Spray/2 Gm 16 Gm Nasal Spray NASAL SCH (07:49)
[2017-06-03 07:51] VITALS: PULSE 85
[2017-06-03] MEDS: Insulin LISPRO 300 Unit/3 mL Inj SUBQ SCH (08:00)
[2017-06-03 08:09] VITALS: BP 130/68; PULSE 92; RESP 18; O2SAT 96
--- NOTE | 2017-06-03 11:13 | PCM.DIMED ---
DOMINIC PATEL DO 06/03/17 1106: Discharge Instructions Date of Service Jun 03, 2017 Dates of Hospitalization Jun 01, 2017 at 15:07 Discharge Diagnosis Discharge Diagnosis Altered mental status, present on admission. Resolved. Acute on chronic renal injury, present on admission. Resolved. Elevated troponins, present on admission. Resolved. Acute Hypotension, present on admission. Resolved. Hyperkalemia, present on admission. Resolved. Poorly controlled Insulin dependent Diabetes mellitus Elevated transaminases Morbid Obesity Depression Hypothyroid Medication Instructions Additional med instructions Suggest adding lisinopril 2.5 mg daily. Discuss with your primary care physician during follow up visit. Diet Discharge Diet: Heart Healthy, Diabetic Activity Discharge Activity: Home Health Phyical Therapy Call your provider Call your provider for: Fever or Chills, Shortness of breath, Chest pain Patient Instructions Patient Instructions Take medications as prescribed. I suggest you alter your diet to a low carbohydrate diet. This may be beneficial in regards to your blood sugar levels. By lowering your daily blood sugars, you decrease the damage to your heart. Follow-up plan follow up with your PCP Dr. Patel in 1-2 weeks regarding follow up visit after hospital stay for intervascular depletion, kidney injury, minor non cardiac chest pain, and altered mental status. Follow-up Provider: Yola Patel DO Follow-up with PCP in: 2 weeks Provider: Rdaha Guidry MD Follow-up in: 3 weeks Benoit Young MD 06/05/17 0753: Discharge Instructions Attending's Statement The patient was seen and examined together with on 06/03/2017 and I agree with the history, exam findings, and plan as outlined in the note above. I did participate in all aspects of the services provided today, including documentation and the plan of care. The patient is medically stable for discharge home. Close follow up with surveillance of laboratories including a BMP with creatinine. DOMINIC PATEL DO Jun 03, 2017 11:06 Benoit Young MD Jun 05, 2017 07:53
[2017-06-03] MEDS ORDERED: LORA10CA PO (11:17)
--- NOTE | 2017-06-03 15:37 | PCM.DC.MED ---
Discharge Summary Date of Service Jun 03, 2017 Dates of Hospitalization Date of Hospital Admission Jun 01, 2017 at 15:07 Date of Discharge: Jun 03, 2017 Providers: Admitting Physician: Jhon Gardner MD Primary Care Physician: Terrance Peoples DO Attending Physician: Benoit Young MD Diagnosis at Time of Discharge Diagnosis at Time of Discharge Altered mental status, present on admission. Resolved. Acute on chronic renal injury, present on admission. Resolved. Elevated troponins, present on admission. Resolved. Acute Hypotension, present on admission. Resolved. Hyperkalemia, present on admission. Resolved. Poorly controlled Insulin dependent Diabetes mellitus Elevated transaminases Morbid Obesity Depression Hypothyroid Procedures XRay, CTs & MRIs CT BRAIN WITHOUT CONTRAST IMPRESSION: 1. No acute post traumatic abnormalities. 2. Age-related atrophy and chronic deep white matter ischemic changes. 3. Multiple areas of chronic ischemic insults. Dictated by: Brad Sanchez M.D. on 06/01/2017 at 13:53 Cardiac Echo Impression Echocardiogram Report Interpretation Summary Normal sinus rhythm. Normal LV size, wall thickness. There is global hypokinesis; worst movement along with dyssynchrony is demonstrated by the septum. EF is 40-45%. Normal diastolic function. No significant valvular abnormalities. There is mild LA enlargement with aneurysm septum but no shunting. Compared to prior study 01/06/2015 LV is less dynamic. EF is down from 50-55% to 40-45%. Other Diagnostics US RENAL SONOGRAM IMPRESSION: Ultrasonographically normal kidneys. Weller catheter in a decompressed bladder. Fatty liver is noted. Dictated by: Naga Hennessy M.D. on 06/01/2017 at 17:31 Brief History Mr. Yessenia Akhtar is a 61 year old gentleman with a history of DM, HTN, hyperlipidemia, depression and CVA presenting to the ED from his primary care physicians office during a routine visit and the patient's physician Dr. PATEL advised patient to go to the ED for low blood pressure and somnolence during interview. He states that he took his morning meds and then has felt sleepy ever since. Denies any recent change in medication, but reports that occasionally the trazodone makes him tired. Pt was feeling fine yesterday aside from a brief stent of shortness of breath. Denies any wheezing, nausea, vomiting , or chest pain. Patients troponins peaked at a fairly high level and resolved rapidly. He was placed on a Heparin ggt for [address] hours. EKG showed no ST changes. Patient was being treated for hypotension and somnolence 2nd to intervascular depletion. He was treated with careful IV hydration. His symptoms largely resolved with in the first 12 hours. He reported some minor chest pain that was not worse with activity and was reproducible to palpation. He reported some mild left sided muscle pain. Cardiology was consulted and decided patient was not a cath candidate due to contrast allergy and acute renal injury. Patient's troponins were likely demand ischemia 2nd to intravascular depletion, and optimal medical management was the best treatment protocol at this time. Patient was discharged in stable medical condition with recommendations regarding better diabetes control and close follow up with primary care physician and 1-3 week follow up with cardiology Hospital Course Altered mental status, present on admission. Resolved. - Possibly polypharmacy, dehydration, glucose related... - Brain CT was normal. Acute on chronic renal injury, present on admission. Resolved. - Likely 2nd to prerenal causes ie.. decreased PO intake. Elevated troponins, present on admission. Resolved. - likely demand ischemia in the setting of acute renal injury. - Not a cath candidate due to renal fx. Chronic or resolving issues. Acute Hypotension, present on admission. Resolved. Hyperkalemia, present on admission. Resolved. Insulin dependent Diabetes mellitus - HA1c - 9.8. Elevated transaminases - Unclear etiology, likely related to SOTOMAYOR. - Ammonia slightly elevated. Morbid Obesity - BMI 42.8 Depression - Continue home medications. Exam Vital Signs (Last) Date Time Temp Pulse Resp B/P Pulse Ox O2 Delivery O2 Flow Rate FiO2 06/03/17 08:09 36.8 92 18 130/68 96 Room Air Exam Head / Eyes: Atraumatic, Normocephalic, PERRL ENT: Mucous membranes moist, Conjunctiva normal, No scleral icterus Neck: Supple, Non-tender, Full range of motion Respiratory: Breath sounds normal, Clear to auscultation, No respiratory distress Cardiovascular: Regular rate & rhythm, Heart sounds normal, Intact distal pulses Abdomen / GI: Soft, Non-tender, No guarding, No rebound, No distention Back: No CVA tenderness Extremities: Vascular intact, Neuro intact, No swelling, No tenderness Skin: Warm, Dry, No cyanosis General/Constitutional: Awake Appearance / Presentation: Positive: Obese Test 06/01/17 12:30 06/01/17 14:23 06/01/17 14:25 06/01/17 22:25 White Blood Count 8.4th/mm3 (3.8-10.1) Red Blood Count 5.62mil/mm3 (4.40-5.80) Hemoglobin 16.2g/dL (13.8-17.2) Hematocrit 48.6% (41.0-50.0) Mean Corpuscular Volume 86.5fL (81-100) Mean Corpuscular Hemoglobin 28.8pg (27.0-35.0) Mean Corpuscular Hemoglobin Concent 33.3% (32.0-37.0) Red Cell Distribution Width 14.6% (12.3-15.4) Platelet Count 173bil/L (150-400) Neutrophils (%) (Auto) 38.5% (40-74) Lymphocytes (%) (Auto) 45.5% (14-46) Monocytes (%) (Auto) 12.1% (4-12) Eosinophils (%) (Auto) 1.0% (0-5) Basophils (%) (Auto) 2.3% (0-3) Hematology Comments Hemoglobin A1c 9.8% (4.8-5.6) Magnesium Level 1.6mg/dL (1.6-2.6) Total Bilirubin 0.7mg/dL (0.0-1.2) Aspartate Amino Transf (AST/SGOT) 58U/L (0-50) Alanine Aminotransferase (ALT/SGPT) 119U/L (0-44) Alkaline Phosphatase 116U/L (25-160) Total Protein 7.7g/dL (6.4-8.4) Albumin 4.0g/dL (3.4-5.0) Procalcitonin 1.57ng/mL (0.00-0.08) Alcohols < 10mg/dL (0-10) Urine Color Dark yellow (YELLOW) Urine Appearance Clear (CLEAR,HAZY) Urine pH 5.5 (5.0-8.0) Urine Specific [place] 1.020 (1.003-1.035) Urine Protein Tracemg/dL (NEG,TRACE) Urine Glucose (UA) >1000mg/dL (NEGATIVE) Urine Ketones Tracemg/dL (NEGATIVE) Urine Occult Blood Negative (NEGATIVE) Urine Nitrite Negative (NEGATIVE) Urine Bilirubin Negative (NEGATIVE) Urine Urobilinogen Normalmg/dL (NORMAL) Urine Leukocyte Esterase Negative (NEGATIVE) Urine RBC 0-2/hpf (0-2) Urine WBC 0-5/hpf (0-5) Urine Epithelial Cells Occasional/hpf (NONE-MOD) Urine Crystals None seen (NONE SEEN) Urine Bacteria Many/hpf (NONE-FEW) Urine Hyaline Casts Occasional/lpf (NONE) Urine Granular Casts None seen (NONE SEEN) Urine Waxy Casts None seen (NONE SEEN) Urine Red Blood Cell Casts None seen (NONE SEEN) Urine White Blood Cell Casts None seen (NONE SEEN) Urine Mucus None seen (None Seen) Urine Trichomonas None seen (NONE SEEN) Urine Yeast None (NONE SEEN) Urinalysis Comment None Urine Culture Reflexed Indicated Lactic Acid Level 1.9mmol/L (0.4-2.0) Ammonia 56ug/dL (18-53) Test 06/02/17 05:00 06/02/17 11:25 06/03/17 08:00 Activated Partial Thromboplast Time 43.2sec (22.8-33.0) Troponin T 0.012ug/L (0.0-0.011) Sodium Level 140mEq/L (134-144) Potassium Level 5.0mEq/L (3.5-5.2) Chloride Level 104mEq/L (97-108) Carbon Dioxide Level 20mmol/L (18-29) Blood Urea Nitrogen 14mg/dL (8-27) Creatinine 1.09mg/dL (0.76-1.27) Estimat Glomerular Filtration Rate 73mL/min (>59) Glucose Level 150mg/dL (60-99) Calcium Level 8.7mg/dL (8.5-10.1) Thyroid Stimulating Hormone (TSH) 1.200uIU/mL (0.450-4.500) Free Thyroxine 1.01ng/dL (0.82-1.77) Discharge Medications Discharge Medications Bupropion ER (Wellbutrin SR) 150 Mg Tablet.er 150 MG PO BID (Reported) Clonazepam (Clonazepam) 1 Mg Tablet 1.5 MG PO HS (Reported) Clonidine (Clonidine) 0.1 Mg Tablet 0.1 MG PO BIDAC (Reported) Doxepin (Doxepin) 100 Mg Capsule 100-200 MG PO HS (Reported) Finasteride (Finasteride) 5 Mg Tablet 5 MG PO AM (Reported) Fluticasone Propionate (Fluticasone Propionate Nasal) 16 Gm [place].susp 2 SPRAY NS DAILY (Reported) Gabapentin (Gabapentin) 100 Mg Capsule 300 MG PO QID (Reported) Insulin Glargine (Lantus U100 Solostar Insulin Pen) 100 Unit/1 Ml Insuln.pen 38 UNIT SUBQ HS (Reported) Ketoconazole (Ketoconazole) 120 Ml Shampoo 1 APPL TOPICAL DAILY (Reported) lather, leave in place for 5 minutes, then rinse off with water immediately. Levothyroxine (Levothyroxine) 75 Mcg Tablet 75 MCG PO DAILY (Reported) Loratadine (Claritin) 10 Mg Capsule 10 MG PO DAILY Prescribed by: DOMINIC PATEL DO Paroxetine (Paxil) 30 Mg Tablet 60 MG PO HS (Reported) Testosterone Cypionate (Depo-Testosterone) 200 Mg/1 Ml Depoinj 0.625 ML IM [id number] (Reported) last dose per pt was Tuesday12/19/2015 Verapamil (Verapamil) 120 Mg Tablet 160 MG PO TID (Reported) As needed Acetaminophen (Acetaminophen) 325 Mg Capsule 325-650 MG PO QID PRN PRN For Pain (Reported) Cyclobenzaprine (Cyclobenzaprine) 10 Mg Tablet 10 MG PO BIDAC PRN PRN Spasm ( Reported) Diazepam (Valium) 2 Mg Tablet 2 MG PO TID PRN PRN vertigo Prescribed by: JHON GARDNER MD Epinephrine (Epipen 2-Jacob) 0.3 Mg/0.3 Ml Auto.injct 0.3 MG IJ PRN PRN PRN For Anaphyllaxis (Reported) Promethazine (Promethazine) 25 Mg Tablet 25 MG PO Q4-6H PRN PRN For Nausea ( Reported) diphenhydrAMINE HCl (Benadryl) 25 Mg Capsule 50 MG PO Q4 PRN PRN For Anaphyllaxis (Reported) Additional med instructions Suggest adding lisinopril 2.5 mg daily. Discuss with your primary care physician during follow up visit. Followup Plan Disposition: home. Follow-up plan follow up with your PCP Dr. Patel in 1-2 weeks regarding follow up visit after hospital stay for intervascular depletion, kidney injury, minor non cardiac chest pain, and altered mental status. Discharge Diet: Heart Healthy, Diabetic Discharge Activity: Home Health Phyical Therapy Patient Instructions Take medications as prescribed. I suggest you alter your diet to a low carbohydrate diet. This may be beneficial in regards to your blood sugar levels. By lowering your daily blood sugars, you decrease the damage to your heart. Follow-up Provider: Yola Patel DO Follow-up with PCP in: 2 weeks Provider: Radha Guidry MD Follow-up in: 3 weeks Time spent > 35 mins. Attending Statement The patient was seen and examined together with Dr. Patel on June 03 and I agree with the history, exam findings, and plan as outlined in the note above. I did participate in all aspects of the services provided today, including documentation and the plan of care. The patient has responded to volume repletion and acute renal failure has improved. This patient is discharged with a mildly revised medication list and close follow-up. copies to: Yola Patel COREY P DO Jun 03, 2017 15:08 Benoit Young MD Jun 04, 2017 16:57
--- NOTE | 2017-06-03 16:09 | NUR ---
Social Work Note: Discharge Data& Assessment: EMR reviewed. Per MD pt is medically ready to discharge home via POV. Yessenia Akhtar is a 61 year old male admitted on 06/07/2017 for NSTEMI, GUANAKITO and hypotension. Per MD pt is medically improved and ready to discharge home via POV. Pt ambulating SBA. No other MD orders identified. No other pt needs identified. Plan: Per MD pt is medically ready to discharge home via POV. No other MD orders identified. No other pt needs identified. All updated and agreeable to plan. RUBEN Clay
== END 2017-06-03 11:58 | disposition home or self-care (01) | DRG 315 ==
LOC: SED 11:14 → PCC 15:07
PROVIDERS: ADMIT Internal Medicine; ATTEND Hospitalist
DX: I95.9 Hypotension, unspecified (principal); N17.9 Acute kidney failure, unspecified; Z68.41 Body mass index [BMI] 40.0-44.9, adult; E87.5 Hyperkalemia; E86.0 Dehydration; E66.01 Morbid (severe) obesity due to excess calories; R07.9 Chest pain, unspecified; R41.82 Altered mental status, unspecified; I10 Essential (primary) hypertension; F32.9 Major depressive disorder, single episode, unspecified; G89.29 Other chronic pain; E78.5 Hyperlipidemia, unspecified; E03.9 Hypothyroidism, unspecified; Z86.73 Personal history of transient ischemic attack (TIA), and cerebral infarction without residual deficits; Z88.0 Allergy status to penicillin; Z88.6 Allergy status to analgesic agent; Z91.041 Radiographic dye allergy status

== ENCOUNTER 2017-07-24 09:55 | Emergency (ER) | payer MEDICARE, MEDICAID ==
[~2017-07-24] VITALS: Ht 162.6 cm; Wt 100.0 kg
[~2017-07-24 09:55] MED LIST changes: +ACET325C PO; +DIPH25CA6 PO; -DIPH50C PO; -GUAI118L13 PO; +LORA10CA PO; -MECL-107 PO; -OXYC1TAB24 PO; -TRAM50TA2 PO; -[UNRECOGNIZED DRUG - CODE] IJ
[2017-07-24 09:58] VITALS: BP 135/69; PULSE 79; RESP 20; O2SAT 99
--- NOTE | 2017-07-24 10:00 | ED.REPORT ---
HPI-Trauma Minor / Fall Date of Service Jul 24, 2017 ED Provider: Osmel Perera MD The pt is a 61 y/o transgender (identifies as male) with a hx of right knee replacement (2 years ago) DM, HTN, hyperlipidemia, depression and CVA who presents to the ED via EMS complaining of right knee pain after he tripped and fell, just prior to arrival. He did not lose consciousness. Associated sx include headache, nausea, neck pain, and bilateral shoulder pain. He denies confusion and any other sx at this time. Nursing Notes Stated Complaint: GROUND LEVEL FALL Chief Complaint: Multiple Trauma/Fall Nursing Notes Reviewed: Yes Allergies: Coded Allergies: aspirin (Verified Allergy, Severe, anaphylactic, 07/24/17) Contrast Media (Verified Allergy, Unknown, 04/28/16) NSAIDS (Non-Steroidal Anti-Inflamma (Verified Allergy, Unknown, 04/28/16) Penicillins (Verified Allergy, Unknown, 04/28/16) Shellfish (Verified Allergy, Unknown, 04/28/16) Dnhbmfd-Xhy-Scd Reductase Inhibitor (Verified Allergy, Unknown, 04/28/16) clindamycin (Verified Allergy, Unknown, 04/28/16) ergotamine (Verified Allergy, Unknown, 04/28/16) latex (Verified Allergy, Unknown, 04/28/16) sumatriptan (Verified Allergy, Unknown, 04/28/16) tomato (Verified Adverse Reaction, Severe, Anaphylaxis, 04/28/16) Raw tomoto and sun dried tomato. Cooked tomao is fine. Uncoded Allergies: AVOCADOS (Allergy, Unknown, 07/02/15) BEES (Allergy, Unknown, 07/16/14) IV CONTRAST (Allergy, Unknown, 07/16/14) SWEETENERS (Allergy, Unknown, 07/16/14) Includinc low cals, stevia, truvia Eggplant (Adverse Reaction, Severe, Anaphylaxis, 05/28/14) Scheduled Bupropion ER (Wellbutrin SR) 150 Mg Tablet.er 150 MG PO BID Clonazepam (Clonazepam) 1 Mg Tablet 1.5 MG PO HS Clonidine (Clonidine) 0.1 Mg Tablet 0.1 MG PO BIDAC Doxepin (Doxepin) 100 Mg Capsule 100-200 MG PO HS Finasteride (Finasteride) 5 Mg Tablet 5 MG PO AM Fluticasone Propionate (Fluticasone Propionate Nasal) 16 Gm [place].susp 2 SPRAY NS DAILY Gabapentin (Gabapentin) 100 Mg Capsule 300 MG PO QID Insulin Glargine (Lantus U100 Solostar Insulin Pen) 100 Unit/1 Ml Insuln.pen 38 UNIT SUBQ HS Ketoconazole (Ketoconazole) 120 Ml Shampoo 1 APPL TOPICAL DAILY lather, leave in place for 5 minutes, then rinse off with water immediately. Levothyroxine (Levothyroxine) 75 Mcg Tablet 75 MCG PO DAILY Loratadine (Claritin) 10 Mg Capsule 10 MG PO DAILY Paroxetine (Paxil) 30 Mg Tablet 60 MG PO HS Testosterone Cypionate (Depo-Testosterone) 200 Mg/1 Ml Depoinj 0.625 ML IM [id number] last dose per pt was Tuesday12/19/2015 Verapamil (Verapamil) 120 Mg Tablet 160 MG PO TID Scheduled PRN Acetaminophen (Acetaminophen) 325 Mg Capsule 325-650 MG PO QID PRN PRN For Pain Cyclobenzaprine (Cyclobenzaprine) 10 Mg Tablet 10 MG PO BIDAC PRN PRN Spasm Diazepam (Valium) 2 Mg Tablet 2 MG PO TID PRN PRN vertigo Epinephrine (Epipen 2-Jacob) 0.3 Mg/0.3 Ml Auto.injct 0.3 MG IJ PRN PRN PRN For Anaphyllaxis Promethazine (Promethazine) 25 Mg Tablet 25 MG PO Q4-6H PRN PRN For Nausea diphenhydrAMINE HCl (Benadryl) 25 Mg Capsule 50 MG PO Q4 PRN PRN For Anaphyllaxis General Time Seen by MD: 10:11 Chief Complaint Other (right knee pain) Hx Obtained From: Patient Arrived By: Ambulance Onset Occurred: Just prior to arrival Symptom Duration: Since onset Caused by: Fall on ground Location: Knee right Quality: Painful Severity: Current: Moderate Severity: Maximum: Moderate Past Medical History Past Medical History Notes: PCP: Dr. Peoples Neurologist: Dr. 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 Renal insufficiency Seborrhea Seborrheic dermatitis PTSD Reports: Diabetes mellitus, Hyperlipidemia, Hypertension Reports: Depression Past Surgical History Bilateral breast reduction Lap band surgery 3 debridements Total knee replacement. Distal end of femur Distal end of left clavical surgically removed Hysterectomy Reports: Cholecystectomy Family History Noncontributory Smoking History Never Smoker Social History Alcohol Use: "Social" Drug Use: Denies drug use Other Social History: Local resident Ambulatory Status Wheelchair Review of Systems Musculoskeletal: Reports: Joint pain (right knee and bilateral shoulder pain), Neck pain Neurologic: Reports: Headache, Denies: Change LOC, Confusion Complete sys rev & neg: except as marked. Physical Exam Initial Vital Signs Vital Signs (First) Date Time Temp Pulse Resp B/P Pulse Ox O2 Delivery O2 Flow Rate FiO2 07/24/17 09:58 36.5 79 20 135/69 99 Room Air Initial VS: Reviewed Head / Eyes: Atraumatic, Normocephalic Respiratory: Breath sounds normal, Clear to auscultation, No respiratory distress Cardiovascular: Regular rate & rhythm, Heart sounds normal, Intact distal pulses Abdomen / GI: Soft, Non-tender, No guarding, No rebound, No distention Skin: Warm, Dry, No cyanosis Neurologic: Alert, Oriented, Nonfocal General/Constitutional: Awake, Alert, No acute distress, Well appearing, Cooperative Neck: Atraumatic, Supple, Full range of motion, No swelling, Non-tender Upper Extremity / MS: Atraumatic, Full range of motion, No swelling, Non-tender , No erythema, No deformity, Neurologic intact, Vascular intact Lower Extremity / Pelvis / MS: Atraumatic, No swelling, No erythema, No deformity, Neurologic intact, Vascular intact Right Knee: Negative: Luis's test positive Diffuse medial right knee tenderness. No right knee effusion Right knee has an old healing scar. Interpretation & Diagnostics X-Ray Interpretation Xray Interpretation: IMPRESSION: No visualized acute fracture or dislocation. However, if clinical concern and/or pain persist, short interval imaging followup in 7-10 days is recommended, as occult injury cannot be definitively excluded. Dictated by: Gianna Wong M.D. on 07/24/2017 at 10:56 Approved by: Gianna Wong M.D. on 07/24/2017 at 10:57 X-Ray Ordered: Knee right CT Head Interpretation IMPRESSION: 1. No acute intracranial process. 2. Mild to moderate atrophy and chronic microvascular ischemic changes. Dictated by: Gianna Wong M.D. on 07/24/2017 at 11:01 Approved by: Gianna Wong M.D. on 07/24/2017 at 11:02 Study: Head CT no contrast Interpretation / Wet Read by: Interpret - Radiologist CT C-Spine Interpretation IMPRESSION: No fracture. Dictated by: Gianna Wong M.D. on 07/24/2017 at 11:02 Approved by: Gianna Wong M.D. on 07/24/2017 at 11:04 Study type: CT no contrast Interpretation / Wet Read by: Interpret - Radiologist Re-Eval/Medical Decision Med Decision/Clinical Course 61-year-old female presenting with fall onto right knee company of right knee pain. X-ray no evidence of fracture. She is weightbearing. Discharged with return precautions. Source of Hx: Old records Re-Evaluation/Progress : Time of Eval: 11:13 Re-Evaluation/Progress Note: Rechecked pt. Discussed imaging results, diagnosis and plan to discharge. Pt understands and agrees with the plan. F/U instruction and RTER warning given. All questions addressed. Counseled Regarding: Diagnosis, Need for follow-up, When/why to return to ED Discharge & Departure Impression: Primary Impression: Right knee injury Encounter type: initial encounter Qualified Code: S89.91XA - Unspecified injury of right lower leg, initial encounter Additional Impression: Head injury Encounter type: initial encounter Qualified Code: S09.90XA - Unspecified injury of head, initial encounter Disposition: Home Discharge Condition All VS Reviewed: Yes Condition: Stable Additional Instructions: Thank you for entrusting us with your care today. Your lab and imaging results are reassuring. There is no sign of fracture or any other dangerous cause of your pain. You may have a concussion from the fall. Follow up with your primary care provider for further evaluation if needed. Also follow up with your orthopedist if your knee pain persists. Return to the emergency department in case you have worsening headache, difficulty balancing, vision changes, vomiting, confusion, excessive sleepiness or any other new or concerning symptoms Referrals: OTHER,PHYSICIAN Scribe Attestation Portions of this note were transcribed by Allen Rivera. I,, personally performed the history,physical exam and medical decision-making;I reviewed and confirmed the accuracy of the information in the transcribed note. Signed by Kendall Romero. 07/23/17 Osmel Perera MD 24, 2017 10:00 Allen Rivera Jul 24, 2017 10:17
--- NOTE | 2017-07-24 10:59 | DRSVH ---
PROCEDURE: X-RAY RIGHT KNEE, THREE VIEWS ([id number]) INDICATIONS: trauma TECHNIQUE: 3 views of the knee were acquired. COMPARISON: [facility], CR, XR KNEE 3VW RT, 04/24/2016, 1:28. FINDINGS: Bones: No fractures or dislocations. No suspicious bony lesions. Knee arthroplasty as well as lower femoral fixation is present. Hardware is intact. Soft tissues: No joint effusion. No suspicious soft tissue calcifications. IMPRESSION: No visualized acute fracture or dislocation. However, if clinical concern and/or pain pe rsist, short interval imaging followup in 7-10 days is recommended, as occult injury cannot be defini tively excluded. Dictated by: Gianna Wong M.D. on 07/24/2017 at 10:56 Approved by: Gianna Wong M.D. on 07/24/2017 at 10:57
--- NOTE | 2017-07-24 11:03 | DRSVH ---
PROCEDURE: CT BRAIN WITHOUT CONTRAST ([id number]) INDICATIONS: trauma TECHNIQUE: Noncontrast 4.5 mm thick angled axial sections acquired from the foramen magnum to the vertex, with c oronal reformats. COMPARISON: [facility], CT, CT BRAIN WO CON, 06/01/2017, 13:36. FINDINGS: Image quality: Excellent. CSF spaces: Basal cisterns are patent. No extra-axial fluid collections. The ventricles are symmet roxi in size and shape. Brain: No intracranial bleeds or masses. There is cerebral volume loss for age, with resultant vent ricular and sulcal prominence. There are periventricular and deep white matter chronic small vessel ischemic changes. There is intracranial internal carotid artery atherosclerosis. Old left focus of basal ganglia lacunar ischemia. Hypodensity is noted within the right cerebellum unchanged and likely related to old ischemia. Skull and face: Calvarium and visualized facial bones appear intact, without suspicious lesions. Sinuses: Visualized sinuses and mastoids are clear. IMPRESSION: 1. No acute intracranial process. 2. Mild to moderate atrophy and chronic microvascular ischemic changes. Dictated by: Gianna Wong M.D. on 07/24/2017 at 11:01 Approved by: Gianna Wong M.D. on 07/24/2017 at 11:02
--- NOTE | 2017-07-24 11:06 | DRSVH ---
PROCEDURE: CT CERVICAL SPINE WITHOUT CONTRAST ([id number]) INDICATIONS: trauma TECHNIQUE: Noncontrast 3 mm thick sections acquired from the skull base to the T4 level. Sagittal and coronal r eformats were then constructed. For radiation dose reduction, the following was used: automated exp osure control, adjustment of mA and/or kV according to patient size. COMPARISON: [facility], CT, CT CERVICAL SPINE WO [facility], 08/21/2016, 22:34. [facility], CT, CT CERVICAL SPINE WO CON, 05/02/2016, 18:22. FINDINGS: Image quality: Excellent. Bones: No fractures or dislocations. Visualized superior ribs are intact. Soft tissues: Prevertebral soft tissues are normal in thickness. No paravertebral hematomas. No ap ical pneumothoraces. IMPRESSION: No fracture. Dictated by: Gianna Wong M.D. on 07/24/2017 at 11:02 Approved by: Gianna Wong M.D. on 07/24/2017 at 11:04
[2017-07-24 11:40] VITALS: BP 136/72; PULSE 81; RESP 20; O2SAT 99
== END 2017-07-24 11:41 | disposition home or self-care (01) ==
LOC: EDSEX → SED 09:55
DX: S09.8XXA Other specified injuries of head, initial encounter (principal); S89.91XA Unspecified injury of right lower leg, initial encounter; W01.0XXA Fall on same level from slipping, tripping and stumbling without subsequent striking against object, initial encounter; Y93.9 Activity, unspecified; Y92.009 Unspecified place in unspecified non-institutional (private) residence as the place of occurrence of the external cause; Y99.8 Other external cause status; I10 Essential (primary) hypertension; E11.9 Type 2 diabetes mellitus without complications; E78.5 Hyperlipidemia, unspecified; F43.10 Post-traumatic stress disorder, unspecified; Z88.0 Allergy status to penicillin; Z88.1 Allergy status to other antibiotic agents; Z88.8 Allergy status to other drugs, medicaments and biological substances; Z91.040 Latex allergy status; Z91.041 Radiographic dye allergy status; Z79.4 Long term (current) use of insulin